=== PATIENT | male | born 1960 | race Caucasian/White ===

== ENCOUNTER 2017-05-09 04:41 | Emergency (ER) | payer SELFPAY ==
[~2017-05-09] VITALS: Ht 177.8 cm; Wt 111.0 kg
[~2017-05-09 04:41] MED LIST: LISI-363 PO; LORTA10 PO
[2017-05-09 04:43] VITALS: BP 142/94; PULSE 97; RESP 20; TEMP 98.3; O2SAT 98
--- NOTE | 2017-05-09 05:37 | PD ---
HPI Chief Complaint: Musculoskeletal Complaint Time Seen by Provider: 04:59 Travel History International Travel<30 days: No Contact w/Intl Traveler<30days: No Traveled to known affect area: No History of Present Illness HPI The patient is 56 year old male who presents to the [facility] emergency department with a history of joint pain that first began approximately 6 months ago. He reports that it began when he developed plantar fasciitis in the right foot. He reports that he believes that he was walking with an abnormal gait and then developed pain in both ankles and knees. He reports that since then he has developed pain also in his hands, wrists, elbows, and shoulders. He denies having any swelling of his joints or redness of his joints. He denies having any fevers or chills. He denies having any night sweats or weight loss. He reports that he has seen his primary care physician regarding this as well as the urgent care center on multiple occasions. The patient reports that he had a large battery of laboratory studies done and no particular abnormality was noted. Rheumatoid arthritis was ruled out. The patient denies having any physical therapy regarding this. He reports that he has not been able to work because of the pain. He reports that he is applying for disability because of this. He was started on Gabapentin tid and when it was not helping his primary care physician titrated it up. Dr. Kenney then also added Celebrex, however this has not been helping. He reports that the only thing that seemed to help with ibuprofen, however his primary care physician did not want him to take this due to his history of high blood pressure. On of systems otherwise, the patient denies having any cough, congestion, neck pain, chest pain, shortness of breath , abdominal pain, vomiting, diarrhea, urinary symptoms, or neurologic symptoms. [facility] Past Medical History Narrative Medical The patient's past medical history is significant for plantar fasciitis, hypertension. PCP: Dr. Kvng Kenney. Diabetes: No Diminished Hearing: No Hypertension: Yes (ON MEDS FOR SEVERAL YEARS) Tetanus Vaccination: < 5 Years Influenza Vaccination: Yes Past Surgical History Narrative Surgical The Patient's past surgical history is significant for 3 operations on his right shoulder. Social History Alcohol Use: Yes (1-2 martinis daily) Tobacco Use: Yes (1 cigar a week) Substance Use: No (NOT IN OVER 10 YEARS) Allergies-Medications (Allergen,Severity, Reaction): Coded Allergies: No Known Allergies (Verified Adverse Reaction, Unknown, 05/09/17) Reported Meds & Prescriptions Reported Meds & Active Scripts Active Mobic (Meloxicam) 15 Mg Tab 15 Mg PO DAILY Reported Hydrocodone/Acetaminophen 10 mg/325 mg Acetaminophen 325/10 Hydrocodone Tab 1 Tab PO Q4H PRN Lisinopril 20 mg (Lisinopril) 20 Mg Tab 20 Mg PO DAILY Narrative Medication Gabapentin, Celebrex Review of Systems Except as stated in HPI: all other systems reviewed are Neg General / Constitutional: No: Fever Eyes: No: Visual changes HENT: No: Headaches Cardiovascular: No: Chest Pain or Discomfort Respiratory: No: Shortness of Breath Gastrointestinal: No: Nausea, Vomiting, Diarrhea, Abdominal Pain Genitourinary: No: Dysuria Musculoskeletal: Positive: Arthralgias, Pain Skin: No Rash Neurologic: No: Weakness, Focal Abnormalities, Change in Mentation, Slurred Speech, Sensory Disturbance Psychiatric: No: Depression Endocrine: No: Polydipsia Hematologic/Lymphatic: No: Easy Bruising Physical Exam Narrative General: The patient is a well-developed well-nourished male in no acute distress. Head and Neck exam: Head is normocephalic atraumatic. Eyes: EOMI, pupils are equal round and reactive to light. Nose: Midline septum with pink mucous membranes Mouth: Dentition unremarkable. Moist mucus membranes. Posterior oropharynx is not erythematous. No tonsillar hypertrophy. Uvula midline. Airway patent. Neck: No palpable lymphadenopathy. No nuchal rigidity. No thyromegaly. Cardiovascular: Regular rate and rhythm without murmurs, gallops, or rubs. Lungs: Clear to auscultation bilaterally. No wheezes, rhonchi, or rales. Abdomen: Soft, without tenderness to palpation in all 4 quadrants of the abdomen. No guarding, rebound, or rigidity. Normal Bowel sounds are audible. No tenderness on palpation of McBurney's point. Extremities: No clubbing, cyanosis, or edema. 2+ pulses in all 4 extremities. The patient has no calf tenderness on palpation. The patient on examination reports shoulder, elbow, wrist, knee, and ankle pain with range of motion. The patient has no erythema or swelling noted. No effusions noted. No visible joint deformity or crepitus. Back: No spinous process tenderness to palpation. No costovertebral angle tenderness to palpation. Neurologic Exam: Grossly nonfocal. Skin Exam: No rash noted. Intact skin that is warm and dry. Data Data Last Documented VS Vital Signs Date Time Temp Pulse Resp B/P (MAP) Pulse Ox O2 Delivery O2 Flow Rate FiO2 05/09/17 06:38 05/09/17 04:43 98.3 97 20 98 Orders Orders Ketorolac Inj (Toradol Inj) (05/09/17 06:15) Ed Discharge Order (05/09/17 06:08) MDM Medical Decision Making Medical Screen Exam Complete: Yes Emergency Medical Condition: Yes Medical Record Reviewed: Yes Differential Diagnosis Osteoarthritis versus inflammatory arthritis Narrative Course During the course of the patients emergency department visit, the patients history, examination, and differential diagnosis were reviewed with the patient. The patient was placed on a court monitor with oximetry and frequent blood pressure monitoring. The patient was provided Toradol 30 mg IM 1. The patient's differential diagnosis was discussed with him. As he has had a recent workup done including blood work that was unremarkable, I suspect that the patient has osteoarthritis. The patient was instructed to discontinue his Celebrex. The patient will instead be started on Mobic. The patient was instructed to discuss with his primary care physician getting referred for physical therapy. The patient is resting comfortably and feels better, is alert and in no distress. The patient's examination findings were discussed with the patient. The history, exam, and current condition do not suggest any significant pathology to warrant further testing, continued ED treatment, admission, or surgical evaluation at this point. The vital signs have been stable. The patient does not have uncontrollable pain, intractable vomiting, or other significant symptoms. The patient's condition is stable and appropriate for discharge. The patient will pursue further outpatient evaluation with a primary care physician or other designated or consulting physician as indicated in the discharge instructions. The patient expressed understanding and was agreeable with this plan. Diagnosis Primary Impression: Arthralgia of both knees Additional Impressions: Arthralgia of both ankles Arthralgia of left upper arm Arthralgia of right upper arm Referrals: Primary Care Physician Patient Instructions: Arthritis (ED), General Instructions Additional Instructions: I recommended he follow up with her primary care physician for referral to physical therapy for exercises and stretching techniques that will help with your arthralgias. Med/Other Pt SpecificInfo: Prescription(s) given, Med Stopped (Stop Celebrex ) Scripts Meloxicam (Mobic) 15 Mg Tab 15 MG PO DAILY, #14 TAB 0 Refills Prov: Dione Sylvester MD 05/09/17 Disposition: 01 DISCHARGE HOME Condition: Stable Dione Sylvester MD May 09, 2017 05:37
[2017-05-09] MEDS ORDERED: MOBI15TA PO (06:00)
[2017-05-09] MEDS ORDERED: KETOROLAC TROMETHAMINE 60 MG/2 ML (IM) VIAL IM ONE (06:15)
== END 2017-05-09 06:40 | disposition home or self-care (01) ==
LOC: NEPE 04:41
DX: M25.561 Pain in right knee (principal); M25.562 Pain in left knee; M25.572 Pain in left ankle and joints of left foot; M25.571 Pain in right ankle and joints of right foot
CPT/HCPCS: 96372; 99284; J1885

== ENCOUNTER 2017-10-31 06:10 | Emergency (ER) | payer SELFPAY ==
[~2017-10-31] VITALS: Ht 177.8 cm; Wt 105.0 kg
[~2017-10-31 06:10] MED LIST changes: +MOBI15TA PO
[2017-10-31 06:13] VITALS: BP 121/82; PULSE 129; RESP 20; TEMP 98.6; O2SAT 96
[2017-10-31 06:24] VITALS: BP 136/105; PULSE 130; RESP 20; O2SAT 97
[2017-10-31] MEDS ORDERED: LISI-515 PO (06:26)
[2017-10-31] MEDS ORDERED: PANTOPRAZOLE SODIUM 40 MG VIAL IV PUSH ONE (06:30)
[2017-10-31] MEDS ORDERED: ONDANSETRON HCL 4 MG/2 ML VIAL IV ONE (06:30)
[2017-10-31] MEDS ORDERED: SODIUM CHLOR 0.9% 1000 ML INJ 1,000 ML IV ONE ×3 (06:30→08:30)
[2017-10-31 06:33] VITALS: O2SAT 98
--- NOTE | 2017-10-31 06:41 | PD ---
HPI Chief Complaint: Abdominal Pain Time Seen by Provider: 06:18 Travel History International Travel<30 days: No Contact w/Intl Traveler<30days: No Traveled to known affect area: No History of Present Illness HPI The patient is a 57 year old male who presents to the [facility] emergency department with a history of not feeling well for the last week. The patient reports that he has been having dry heaves, frequent hiccuping, and diarrhea. He denies having any abdominal pain. He reports that he has not had any appetite and has lost 13 pounds in the last week. He reports that he has had diarrhea approximately every hour to hour and a half. He reports that the stool is green in color. He denies having any blood in his stool or mucus in his stool. He denies any recent antibiotic use. He reports that he has been having increased acid indigestion and heartburn. He denies having any chest pain or shortness of breath. On review of systems otherwise, the patient denies having any recent fevers, cough or congestion, neck pain, urinary symptoms, or neurologic symptoms. [facility] Past Medical History Narrative Medical The patient's past medical history is significant for hypertension. Diabetes: No Diminished Hearing: No Hypertension: Yes Tetanus Vaccination: < 5 Years Influenza Vaccination: Yes Past Surgical History Narrative Surgical The patient's past surgical history is significant for 3 prior operations on his right shoulder. Social History Alcohol Use: Yes (2 martinis daily) Tobacco Use: Yes (One half pack per day) Substance Use: No (NOT IN OVER 10 YEARS) Allergies-Medications (Allergen,Severity, Reaction): Coded Allergies: No Known Allergies (Verified Adverse Reaction, Unknown, 10/31/17) Reported Meds & Prescriptions Reported Meds & Active Scripts Active Reported Lisinopril 20 Mg Tab 20 Mg PO DAILY Review of Systems Except as stated in HPI: all other systems reviewed are Neg General / Constitutional: Positive: Weight Loss, No: Fever Eyes: No: Visual changes HENT: No: Headaches Cardiovascular: No: Chest Pain or Discomfort Respiratory: No: Shortness of Breath Gastrointestinal: Positive: Nausea, Vomiting, Diarrhea, Changes in Bowel Habits , Indigestion, Loss of Appetite, No: Abdominal Pain, Hematochezia Genitourinary: No: Dysuria Musculoskeletal: No: Pain Skin: No Rash Neurologic: No: Weakness, Focal Abnormalities, Change in Mentation, Slurred Speech, Sensory Disturbance Psychiatric: No: Depression Endocrine: No: Polydipsia Hematologic/Lymphatic: No: Easy Bruising Physical Exam Narrative General: The patient is a well-developed well-nourished male in no acute distress. Head and Neck exam: Head is normocephalic atraumatic. Eyes: EOMI, pupils are equal round and reactive to light. Nose: Midline septum with pink mucous membranes Mouth: Dentition unremarkable. Moist mucus membranes. Posterior oropharynx is erythematous without tonsillar hypertrophy. No palatal petechiae. Uvula midline. Airway patent. Neck: No palpable lymphadenopathy. No nuchal rigidity. No thyromegaly. Cardiovascular: Sinus tachycardia in the 1 teens to 120 without murmurs, gallops, or rubs. No pulse deficit to the extremities on simultaneous auscultation and palpation of his radial artery. Lungs: Clear to auscultation bilaterally. No wheezes, rhonchi, or rales. Abdomen: Soft, without tenderness to palpation in all 4 quadrants of the abdomen. No guarding, rebound, or rigidity. Normal bowel sounds are audible. No tenderness on palpation of McBurney's point. Negative Dale sign peer Extremities: No clubbing, cyanosis, or edema. 2+ pulses in all 4 extremities. No calf tenderness on palpation. Back: No spinous process tenderness to palpation. No costovertebral angle tenderness to palpation. Neurologic Exam: Grossly nonfocal. Skin Exam: No rash noted. Intact skin that is warm and dry. Data Data Last Documented VS Vital Signs Date Time Temp Pulse Resp B/P (MAP) Pulse Ox O2 Delivery O2 Flow Rate FiO2 10/31/17 06:33 98 Room Air 10/31/17 06:24 130 20 10/31/17 06:13 98.6 Orders Orders Electrocardiogram (10/31/17 06:28) Complete Blood Count With Diff (10/31/17 06:28) Comprehensive Metabolic Panel (10/31/17 06:28) Prothrombin Time / Inr (Pt) (10/31/17 06:28) Act Partial Throm Time (Ptt) (10/31/17 06:28) Lipase (10/31/17 06:28) Urinalysis - C+S If Indicated (10/31/17 06:28) Magnesium (Mg) (10/31/17 06:28) Thyroid Stimulating Hormone (10/31/17 06:28) Chest, Single Ap (10/31/17 06:28) Iv Access Insert/Monitor (10/31/17 06:28) Ecg Monitoring (10/31/17:28) Oximetry (10/31/17 06:28) Drug Screen, Random Urine (10/31/17 06:28) Alcohol (Ethanol) (10/31/17 06:28) Sodium Chlor 0.9% 1000 Ml Inj (Ns 1000 M (10/31/17 06:30) Ondansetron Inj (Zofran Inj) (10/31/17 06:30) Pantoprazole Inj (Protonix Inj) (10/31/17 06:30) Creatine Kinase (Cpk) (10/31/17 06:28) Ckmb (Isoenzyme) Profile (10/31/17 06:28) Troponin I (10/31/17 06:28) Labs Laboratory Tests Test 10/31/17 06:40 White Blood Count 5.3 TH/MM3 Red Blood Count 4.92 MIL/MM3 Hemoglobin 17.0 GM/DL Hematocrit 47.0 % Mean Corpuscular Volume 95.6 FL Mean Corpuscular Hemoglobin 34.6 PG Mean Corpuscular Hemoglobin Concent 36.2 % Red Cell Distribution Width 13.8 % Platelet Count 149 TH/MM3 Mean Platelet Volume 8.6 FL Neutrophils (%) (Auto) 70.2 % Lymphocytes (%) (Auto) 20.4 % Monocytes (%) (Auto) 8.6 % Eosinophils (%) (Auto) 0.0 % Basophils (%) (Auto) 0.8 % Neutrophils # (Auto) 3.7 TH/MM3 Lymphocytes # (Auto) 1.1 TH/MM3 Monocytes # (Auto) 0.5 TH/MM3 Eosinophils # (Auto) 0.0 TH/MM3 Basophils # (Auto) 0.0 TH/MM3 CBC Comment AUTO DIFF Prothrombin Time 11.5 SEC Prothromb Time International Ratio 1.1 RATIO Activated Partial Thromboplast Time 32.9 SEC MDM Medical Decision Making Medical Screen Exam Complete: Yes Emergency Medical Condition: Yes Medical Record Reviewed: Yes Differential Diagnosis Gastroenteritis, versus viral syndrome, versus electrolyte derangements, versus dehydration, versus alcohol withdrawal Narrative Course During the course of the patient's emergency department visit, the patient's history, examination, and differential diagnosis were reviewed with the patient. The patient was placed on a youth nutritional monitor with oximetry and frequent blood pressure monitoring. The patient had IV access obtained and blood work sent for analysis. The patient was initially provided normal saline 1 L IV fluid bolus, Zofran 4 mg IV, Protonix 40 mg IV. The patient's laboratory studies were reviewed and remarkable for 10/31/17 06:40 Radiology studies were reviewed and remarkable for Last Impressions Chest X-Ray 10/31/1728 Signed Impressions: Service Date/Time: Tuesday, October 31, 2017 06:35 - CONCLUSION: No acute cardiopulmonary process. David Gan MD The patient's chemistry panel, lipase, cardiac enzymes, TSH are pending at the conclusion of my shift. The patient's case was checked out to the oncoming emergency physician to disposition the patient based on the conclusion of his workup. Diagnosis Primary Impression: Diarrhea Qualified Codes: R19.7 - Diarrhea, unspecified Dione Sylvester MD October 31, 2017 06:41
[2017-10-31 06:46] LABS: AUTOMATED NEUTROPHIL # 3.7 TH/MM3 (1.8-7.7); BASOPHIL % 0.8 % (0.0-2.0); LYMPH % 20.4 % (9.0-44.0); LYMPHOCYTE # 1.1 TH/MM3 (1.0-4.8); MEAN CELL VOLUME 95.6 FL (80.0-100.0); MEAN CORPUSCULAR HEMOGLOBIN 34.6 PG (27.0-34.0); MEAN PLATELET VOLUME 8.6 FL (7.0-11.0); MONO % 8.6 % (0.0-8.0); MONOCYTE # 0.5 TH/MM3 (0-0.9); NEUT % 70.2 % (16.0-70.0); PLATELET COUNT 149 TH/MM3 (150-450); RED BLOOD COUNT 4.92 MIL/MM3 (4.50-5.90); RED CELL DISTRIBUTION WIDTH 13.8 % (11.6-17.2); WHITE BLOOD COUNT 5.3 TH/MM3 (4.0-11.0)
[2017-10-31 06:52] LABS: INTERNATIONAL NORMALIZED RATIO 1.1 RATIO; PROTHROMBIN TIME - PATIENT 11.5 SEC (9.8-11.6)
--- NOTE | 2017-10-31 06:54 | RADRPT ---
EXAM DATE/TIME: 10/31/2017 06:35 [place] COMPARISON: No previous studies available for comparison. INDICATIONS : Palpitations,short of breath. MEDICAL HISTORY : None. SURGICAL HISTORY : None. ENCOUNTER: Initial ACUITY: 1 day PAIN SCORE: 0/10 LOCATION: Bilateral chest FINDINGS: A single view of the chest demonstrates the lungs to be symmetrically aerated without evidence of mas s, infiltrate or effusion. The cardiomediastinal contours are unremarkable. Osseous structures are intact with some degenerative spurring of the dorsal spine. CONCLUSION: No acute cardiopulmonary process. David Gan MD on October 31, 2017 at 6:52 Board Certified Radiologist. This report was verified electronically.
[2017-10-31 07:00] LABS: MEAN CORPUSCULAR HGB CONC 36.2 % (32.0-36.0)
[2017-10-31 07:17] LABS: ALBUMIN 3.1 GM/DL (3.4-5.0); ALKALINE PHOSPHATASE 64 U/L (45-117); ALT (GPT) 214 U/L (12-78); AST (GOT) 420 U/L (15-37); BICARBONATE 19.8 MEQ/L (21.0-32.0); BLOOD UREA NITROGEN 15 MG/DL (7-18); CALCIUM 7.9 MG/DL (8.5-10.1); CHLORIDE 93 MEQ/L (98-107); CREATININE 1.36 MG/DL (0.60-1.30); GLOMERULAR FILTRATION RATE 54 ML/MIN (>89); GLUCOSE,RANDOM 95 MG/DL (74-106); MAGNESIUM 1.5 MG/DL (1.5-2.5); SODIUM (NA) 128 MEQ/L (136-145); TOTAL BILIRUBIN ADULT 0.6 MG/DL (0.2-1.0); TROPONIN I 0.04 NG/ML (0.02-0.05)
[2017-10-31] MEDS ORDERED: diphenhydrAMINE HCL 50 MG/ML VIAL IV PUSH ONE (07:30)
[2017-10-31] MEDS ORDERED: PROCHLORPERAZINE INJ 10 MG/2 ML VIAL IV PUSH ONE (07:30)
[2017-10-31] MEDS ORDERED: LORazepam 2 MG/ML VIAL IV PUSH ONE (07:30)
--- NOTE | 2017-10-31 08:24 | PD ---
Physical Exam Date Seen by Provider: October 31, 2017 Narrative And at [address] Sylvester. This patient presented with GI complaints. Specifically, nausea, dry heaving, hiccups and diarrhea. Onset of symptoms was one week prior to presentation. Severity was diarrhea every to 1.5 hours. The quality of the diarrhea was green. Data Data Last Documented VS Vital Signs Date Time Temp Pulse Resp B/P (MAP) Pulse Ox O2 Delivery O2 Flow Rate FiO2 10/31/17 06:33 98 Room Air 10/31/17 06:24 130 20 10/31/17 06:13 98.6 Orders Orders Electrocardiogram (10/31/17:28) Complete Blood Count With Diff (10/31/17:) Comprehensive Metabolic Panel (10/31/17) Prothrombin Time / Inr (Pt) (10/31/17) Act Partial Throm Time (Ptt) (10/31/17:28) Lipase (10/31/17:) Urinalysis - C+S If Indicated (10/31/1728) Magnesium (Mg) (10/31/17:28) Thyroid Stimulating Hormone (10/31/17:28) Chest, Single Ap (10/31/17:28) Iv Access Insert/Monitor (10/31/17:28) Ecg Monitoring (10/31/17:28) Oximetry (10/31/17:28) Drug Screen, Random Urine (10/31/17:28) Alcohol (Ethanol) (10/31/17 06:28) Sodium Chlor 0.9% 1000 Ml Inj (Ns 1000 M (10/31/17 06:30) Ondansetron Inj (Zofran Inj) (10/31/17 06:30) Pantoprazole Inj (Protonix Inj) (10/31/17 06:30) Creatine Kinase (Cpk) (10/31/17 06:28) Ckmb (Isoenzyme) Profile (10/31/17:28) Troponin I (10/31/17 06:28) CKMB (10/31/17 06:40) CKMB% (10/31/17 06:40) Lorazepam Inj (Ativan Inj) (10/31/17 07:30) Sodium Chlor 0.9% 1000 Ml Inj (Ns 1000 M (10/31/17 07:30) Diphenhydramine Inj (Benadryl Inj) (10/31/17 07:30) Prochlorperazine Inj (Compazine Inj) (10/31/17 07:30) Cath For Specimen (10/31/17 07:22) Sodium Chlor 0.9% 1000 Ml Inj (Ns 1000 M (10/31/17 08:30) Labs Laboratory Tests Test 10/31/17 06:40 10/31/17 09:27 White Blood Count 5.3 TH/MM3 Red Blood Count 4.92 MIL/MM3 Hemoglobin 17.0 GM/DL Hematocrit 47.0 % Mean Corpuscular Volume 95.6 FL Mean Corpuscular Hemoglobin 34.6 PG Mean Corpuscular Hemoglobin Concent 36.2 % Red Cell Distribution Width 13.8 % Platelet Count 149 TH/MM3 Mean Platelet Volume 8.6 FL Neutrophils (%) (Auto) 70.2 % Lymphocytes (%) (Auto) 20.4 % Monocytes (%) (Auto) 8.6 % Eosinophils (%) (Auto) 0.0 % Basophils (%) (Auto) 0.8 % Neutrophils # (Auto) 3.7 TH/MM3 Lymphocytes # (Auto) 1.1 TH/MM3 Monocytes # (Auto) 0.5 TH/MM3 Eosinophils # (Auto) 0.0 TH/MM3 Basophils # (Auto) 0.0 TH/MM3 CBC Comment AUTO DIFF Differential Comment AUTO DIFF CONFIRMED Prothrombin Time 11.5 SEC Prothromb Time International Ratio 1.1 RATIO Activated Partial Thromboplast Time 32.9 SEC Blood Urea Nitrogen 15 MG/DL Creatinine 1.36 MG/DL Random Glucose 95 MG/DL Total Protein 8.0 GM/DL Albumin 3.1 GM/DL Calcium Level 7.9 MG/DL Magnesium Level 1.5 MG/DL Alkaline Phosphatase 64 U/L Aspartate Amino Transf (AST/SGOT) 420 U/L Alanine Aminotransferase (ALT/SGPT) 214 U/L Total Bilirubin 0.6 MG/DL Sodium Level 128 MEQ/L Potassium Level 4.1 MEQ/L Chloride Level 93 MEQ/L Carbon Dioxide Level 19.8 MEQ/L Anion Gap 15 MEQ/L Estimat Glomerular Filtration Rate 54 ML/MIN Total Creatine Kinase 463 U/L Creatine Kinase MB 2.8 NG/ML Creatine Kinase MB % 0.6 % Troponin I 0.04 NG/ML Lipase 284 U/L Thyroid Stimulating Hormone 3rd Gen 0.427 uIU/ML Ethyl Alcohol Level 156 MG/DL Urine Color YELLOW Urine Turbidity CLEAR Urine pH 6.0 Urine Specific [place] 1.016 Urine Protein 30 mg/dL Urine Glucose (UA) NEG mg/dL Urine Ketones 10 mg/dL Urine Occult Blood SMALL Urine Nitrite NEG Urine Bilirubin NEG Urine Urobilinogen LESS THAN 2.0 MG/DL Urine Leukocyte Esterase NEG Urine RBC 1 /hpf Urine WBC 2 /hpf Urine Squamous Epithelial Cells 1 /hpf Urine Hyaline Casts 11 /lpf Urine Mucus FEW /lpf Microscopic Urinalysis Comment CULT NOT INDICATED Urine Opiates Screen NEG Urine Barbiturates Screen NEG Urine Amphetamines Screen NEG Urine Benzodiazepines Screen NEG Urine Cocaine Screen POS Urine Cannabinoids Screen NEG MDM Supervised Visit with VENKAT: No Narrative Course Vital Signs Date Time Temp Pulse Resp B/P (MAP) Pulse Ox O2 Delivery O2 Flow Rate FiO2 10/31/17 06:33 98 Room Air 10/31/17 06:24 130 20 136/105 (115) 97 Room Air 10/31/17 06:13 98.6 129 20 121/82 (95) 96 CBC & BMP Diagram 10/31/17 06:40 Total Protein 8.0, Albumin 3.1 L, Calcium Level 7.9 L, Magnesium Level 1.5, Alkaline Phosphatase 64, Aspartate Amino Transf (AST/SGOT) 420 H, Alanine Aminotransferase (ALT/SGPT) 214 H, Total Bilirubin 0.6 Alcohol level is 156 The patient is being treated here with IV fluids. He has had Zofran and Ativan prior to my assuming his care. He continued to have hiccups and dry heaves. He was then given Compazine and Benadryl. He now appears to be resting comfortably. His heart rate has come down. UA is negative This patient has been here now for almost 5 hours and has had only one small diarrheal stool. He is stable for discharge to home. Diagnosis Primary Impression: Diarrhea Qualified Codes: R19.7 - Diarrhea, unspecified Additional Impressions: Dehydration Hyponatremia Alcohol intoxication Qualified Codes: F10.920 - Alcohol use, unspecified with intoxication, uncomplicated Transaminitis Patient Instructions: Abuse of Alcohol (DC), Acute Diarrhea (ED), General Instructions Disposition: DISCHARGE HOME Condition: Stable Lachelle Cid MD October 31, 2017 08:24
--- NOTE | 2017-10-31 08:48 | EKG ---
Date Performed: 10/31/2017 Time Performed: 06:23:17 PTAGE: 57 years EKG: SINUS TACHYCARDIA NONSPECIFIC T-WAVE ABNORMALITY ABNORMAL RHYTHM ECG NO PREVIOUS TRACING DOCTOR: Yoel Sylvester Interpretating Date/Time 10/31/2017 08:46:03
[2017-10-31 09:00] VITALS: BP 139/66; PULSE 116; RESP 16; O2SAT 100
[2017-10-31 09:49] LABS: BILIRUBIN, URINE NEG (NEG); BLOOD, URINE SMALL (NEG); GLUCOSE,URINE NEG (NEG); HYALINE CAST, URINE 11 /lpf (RARE); KETONE, URINE 10 mg/dL (NEG); MUCUS URINE FEW /lpf (OCC); NITRITE,URINE NEG (NEG); SQUAMOUS EPITHELIAL CELL URINE 1 /hpf (0-5); URINE COLOR YELLOW (YELLW/STRAW); URINE LEUKOCYTE ESTERASE NEG (NEG)
[2017-10-31 11:00] VITALS: BP 138/65; PULSE 110; RESP 20; O2SAT 98
== END 2017-10-31 11:55 | disposition home or self-care (01) ==
LOC: NEPE 06:10
DX: R19.7 Diarrhea, unspecified (principal); E86.0 Dehydration; E87.1 Hypo-osmolality and hyponatremia; R74.0 Nonspecific elevation of levels of transaminase and lactic acid dehydrogenase [LDH]; I10 Essential (primary) hypertension; F17.200 Nicotine dependence, unspecified, uncomplicated; R00.0 Tachycardia, unspecified; F10.129 Alcohol abuse with intoxication, unspecified; Y90.6 Blood alcohol level of 120-199 mg/100 ml; Z79.899 Other long term (current) drug therapy
CPT/HCPCS: 71045; 80053; 80307; 81001; 82550; 82552; 83690; 83735; 84443; 84484; 85025; 85610; 85730; 93005; 96361; 96374; 96375; 99285; C9113; J0780; J1200; J2060; J2405; J7030

== ENCOUNTER 2017-11-01 21:06 | Inpatient (IN) | payer SELFPAY ==
[~2017-11-01 21:06] MED LIST changes: -LISI-363 PO; +LISI-515 PO; -LORTA10 PO; -MOBI15TA PO
[2017-11-01 21:11] VITALS: BP 135/86; PULSE 139; RESP 18; TEMP 100.3; O2SAT 97
[2017-11-01] MEDS ORDERED: SODIUM CHLOR 0.9% 1000 ML INJ 1,000 ML IV SCH (21:27)
[2017-11-01 21:30] VITALS: RESP 22
[2017-11-01] MEDS ORDERED: ONDANSETRON HCL 4 MG/2 ML VIAL IVP ONE (21:30)
[2017-11-01] MEDS ORDERED: SODIUM CHLORIDE 0.9% FLUSH 10 ML FLUSH IV FLUSH PRN (21:30)
[2017-11-01] MEDS ORDERED: LORazepam 2 MG/ML VIAL IV PUSH ONE (21:30)
[2017-11-01 21:54] LABS: AUTOMATED NEUTROPHIL # 1.8 TH/MM3 (1.8-7.7); BASOPHIL % 0.7 % (0.0-2.0); HEMATOCRIT 47.4 % (39.0-51.0); HEMOGLOBIN 16.9 GM/DL (13.0-17.0); LYMPH % 26.7 % (9.0-44.0); LYMPHOCYTE # 0.7 TH/MM3 (1.0-4.8); MEAN CELL VOLUME 95.9 FL (80.0-100.0); MEAN CORPUSCULAR HEMOGLOBIN 34.2 PG (27.0-34.0); MEAN CORPUSCULAR HGB CONC 35.7 % (32.0-36.0); MONO % 6.9 % (0.0-8.0); MONOCYTE # 0.2 TH/MM3 (0-0.9); NEUT % 65.7 % (16.0-70.0); PLATELET COUNT 92 TH/MM3 (150-450); RED BLOOD COUNT 4.95 MIL/MM3 (4.50-5.90); RED CELL DISTRIBUTION WIDTH 13.9 % (11.6-17.2); WHITE BLOOD COUNT 2.8 TH/MM3 (4.0-11.0)
--- NOTE | 2017-11-01 22:04 | PD ---
HPI Chief Complaint: GI Complaint Time Seen by Provider: 21:26 Travel History International Travel<30 days: No Contact w/Intl Traveler<30days: No Traveled to known affect area: No History of Present Illness HPI Patient comes emergency department complaining of inability to swallow. Patient is he has been having issues for the past 3 or 4 months with get worse over the past 4 days. Patient was seen here yesterday for the same. Patient was medically cleared at that time and discharged home. Patient states that anytime he tries to eat or drink anything he is unable to swallow and just has to spit it right back out. Patient states he feels like he has something stuck in his throat that is keeping him from being able swallow. Patient is he has not had any alcohol in several days secondary to not being able swallow. Denies any chest pain, shortness of breath, fevers, abdominal pain, or headache. Patient reports associated clear diarrhea. PFSH Past Medical History Diabetes: No Diminished Hearing: No Hypertension: Yes Immunizations Current: Yes Tetanus Vaccination: < 5 Years Influenza Vaccination: Yes Social History Alcohol Use: Yes (2 martinis daily) Tobacco Use: Yes (One half pack per day) Substance Use: No (NOT IN OVER 10 YEARS) Allergies-Medications (Allergen,Severity, Reaction): Coded Allergies: No Known Allergies (Verified Adverse Reaction, Unknown, 11/01/17) Reported Meds & Prescriptions Reported Meds & Active Scripts Active Reported Lisinopril 20 Mg Tab 20 Mg PO DAILY Review of Systems Except as stated in HPI: all other systems reviewed are Neg Physical Exam Narrative GENERAL: Well-developed, overly nourished, in no acute distress, and non-ill appearing. SKIN: Focused skin assessment warm and dry. HEAD: Atraumatic. Normocephalic. EYES: Pupils equal and round. EOMI. No scleral icterus. No injection or drainage. ENT: No nasal bleeding or discharge. Mucous membranes pink and moist. Posterior pharynx mild erythematous scant exudate noted. Questionable thrush. NECK: Trachea midline. No cervical lymphadenopathy. Supple. No nuclear rigidity. CARDIOVASCULAR: Regular rate and rhythm. No murmur appreciated. RESPIRATORY: No accessory muscle use. No respiratory distress. Clear to auscultation. Breath sounds equal bilaterally. GASTROINTESTINAL: Abdomen soft, non-tender, nondistended, and no guarding. Hepatic and splenic margins not palpable. Normal bowel sounds x4. No pulsatile mass. MUSCULOSKELETAL: No obvious deformities. No clubbing. No cyanosis. No edema. Full range of motion. NEUROLOGICAL: Awake and alert. No obvious cranial nerve deficits. Motor grossly within normal limits. Normal speech. PSYCHIATRIC: Appropriate mood and affect; insight and judgment normal. Data Data Last Documented VS Vital Signs Date Time Temp Pulse Resp B/P (MAP) Pulse Ox O2 Delivery O2 Flow Rate FiO2 11/01/17 22:07 99.4 119 24 143/90 (107) 97 Nasal Cannula 2.00 Orders Orders Complete Blood Count With Diff (11/01/17 21:27) Comprehensive Metabolic Panel (11/01/17 21:27) Lipase (11/01/17 21:27) Prothrombin Time / Inr (Pt) (11/01/17:) Act Partial Throm Time (Ptt) (11/01/17 21:27) Iv Access Insert/Monitor (11/01/17 21:27) Ecg Monitoring (11/01/17 21:27) Oximetry (11/01/17 21:27) Ondansetron Inj (Zofran Inj) (11/01/17 21:30) Sodium Chlor 0.9% 1000 Ml Inj (Ns 1000 M (11/01/17 21:27) Sodium Chloride 0.9% Flush (Ns Flush) (11/01/17 21:30) Electrocardiogram (11/01/17 21:27) Lorazepam Inj (Ativan Inj) (11/01/17 21:30) Alcohol (Ethanol) (11/01/17 21:32) Soft Tissue Neck (11/01/17 ) Group A Rapid Strep Screen (11/01/17 21:32) Electrocardiogram (11/01/17 21:35) Ckmb (Isoenzyme) Profile (11/01/17 21:35) Magnesium (Mg) (11/01/17 21:35) Troponin I (11/01/17 21:35) Bilateral Bp Monitoring (11/01/17 21:35) Oxygen Administration (11/01/17 21:35) Chest, Pa & Lat (11/01/17 21:35) Ketorolac Inj (Toradol Inj) (11/01/17 22:15) Influenzae A/B Antigen (11/01/17 22:16) Strep Culture (Group A) (11/01/17 22:10) Ns (Bolus) Inj (11/01/17 22:45) Electrocardiogram (11/01/17 ) Ct Soft Tiss Neck W Iv Cont (11/01/17 ) Ct Abd/Pel W Iv Contrast(Rout) (11/01/17 ) Labs Laboratory Tests Test 11/01/17 21:30 White Blood Count 2.8 TH/MM3 Red Blood Count 4.95 MIL/MM3 Hemoglobin 16.9 GM/DL Hematocrit 47.4 % Mean Corpuscular Volume 95.9 FL Mean Corpuscular Hemoglobin 34.2 PG Mean Corpuscular Hemoglobin Concent 35.7 % Red Cell Distribution Width 13.9 % Platelet Count 92 TH/MM3 Mean Platelet Volume 9.0 FL Neutrophils (%) (Auto) 65.7 % Lymphocytes (%) (Auto) 26.7 % Monocytes (%) (Auto) 6.9 % Eosinophils (%) (Auto) 0.0 % Basophils (%) (Auto) 0.7 % Neutrophils # (Auto) 1.8 TH/MM3 Lymphocytes # (Auto) 0.7 TH/MM3 Monocytes # (Auto) 0.2 TH/MM3 Eosinophils # (Auto) 0.0 TH/MM3 Basophils # (Auto) 0.0 TH/MM3 CBC Comment AUTO DIFF Differential Comment AUTO DIFF CONFIRMED Platelet Estimate LOW Platelet Morphology Comment NORMAL Prothrombin Time 12.0 SEC Prothromb Time International Ratio 1.2 RATIO Activated Partial Thromboplast Time 34.0 SEC Blood Urea Nitrogen 14 MG/DL Creatinine 1.42 MG/DL Random Glucose 100 MG/DL Total Protein 7.7 GM/DL Albumin 3.0 GM/DL Calcium Level 7.6 MG/DL Alkaline Phosphatase 59 U/L Aspartate Amino Transf (AST/SGOT) 882 U/L Alanine Aminotransferase (ALT/SGPT) 399 U/L Total Bilirubin 0.8 MG/DL Sodium Level 131 MEQ/L Potassium Level 3.5 MEQ/L Chloride Level 96 MEQ/L Carbon Dioxide Level 19.6 MEQ/L Anion Gap 15 MEQ/L Estimat Glomerular Filtration Rate 51 ML/MIN Lipase 609 U/L MDM Medical Decision Making Medical Screen Exam Complete: Yes Emergency Medical Condition: Yes Medical Record Reviewed: Yes Interpretation(s) Initial EKG reviewed by Dr. Mistry shows sinus tachycardia with ventricular rate 137. No STEMI. Differential Diagnosis Strep pharyngitis, viral pharyngitis, alcohol withdrawal, atypical chest pain, pancreatitis, metabolic disturbance Narrative Course Patient was seen and examined. Initial laboratory radiological studies were ordered. Patient is an IV fluid, IV Ativan, and IV Zofran. After reviewing patient's labs, CTs were ordered. Patient was signed out to Dr. Mistry at the end of my shift pending radiological results. Please see his documentation for final diagnosis and disposition. Wolfgang Hernandez November 01, 2017 22:04
[2017-11-01 22:07] VITALS: BP 143/90; PULSE 119; RESP 24; TEMP 99.4; O2SAT 97
[2017-11-01 22:13] LABS: INTERNATIONAL NORMALIZED RATIO 1.2 RATIO
[2017-11-01] MEDS ORDERED: KETOROLAC TROMETHAMINE 30 MG/ML (IVP) VIAL IV PUSH ONE (22:15)
[2017-11-01 22:25] LABS: ALKALINE PHOSPHATASE 59 U/L (45-117); ALT (GPT) 399 U/L (12-78); AST (GOT) 882 U/L (15-37); BICARBONATE 19.6 MEQ/L (21.0-32.0); BLOOD UREA NITROGEN 14 MG/DL (7-18); CALCIUM 7.6 MG/DL (8.5-10.1); CHLORIDE 96 MEQ/L (98-107); CREATININE 1.42 MG/DL (0.60-1.30); GLOMERULAR FILTRATION RATE 51 ML/MIN (>89); GLUCOSE,RANDOM 100 MG/DL (74-106); SODIUM (NA) 131 MEQ/L (136-145); TOTAL BILIRUBIN ADULT 0.8 MG/DL (0.2-1.0); TOTAL PROTEIN 7.7 GM/DL (6.4-8.2)
[2017-11-01] MEDS ORDERED: SODIUM CHLOR 0.9% 1000 ML INJ 1,000 ML IV ONE (22:45)
--- NOTE | 2017-11-01 22:50 | RADRPT ---
EXAM DATE/TIME: 11/01/2017 21:51 [facility] COMPARISON: No previous studies available for comparison. INDICATIONS : Patient states he feels like he has something stuck in the top of his mouth. MEDICAL HISTORY : None. SURGICAL HISTORY : None. ENCOUNTER: Initial ACUITY: 1 day PAIN SCORE: 0/10 LOCATION: Esophagus FINDINGS: Two view examination of the soft tissues of the neck demonstrates the hypopharyngeal airway to have a grossly normal configuration. The trachea is midline. No radiopaque foreign bodies are seen. CONCLUSION: 1. No acute findings. Bobby Chance MD on November 01, 2017 at 22:48 Board Certified Radiologist. This report was verified electronically.
--- NOTE | 2017-11-01 22:51 | RADRPT ---
EXAM DATE/TIME: 11/01/2017 21:53 [facility] COMPARISON: No previous studies available for comparison. INDICATIONS : Chest pain. MEDICAL HISTORY : None. SURGICAL HISTORY : None. ENCOUNTER: Initial ACUITY: 1 day PAIN SCORE: 2/10 LOCATION: Bilateral chest FINDINGS: PA and lateral views of the chest demonstrate the lungs to be symmetrically aerated without evidence of mass, infiltrate or effusion. The cardiomediastinal contours are unremarkable. Osseous structure s are intact. CONCLUSION: No acute disease. Bobby Chance MD on November 01, 2017 at 22:48 Board Certified Radiologist. This report was verified electronically.
[2017-11-01] MEDS ORDERED: IOHEXOL 350 MG/ML 10 ML VIAL (for RAD DIAG) IVCONTRAST ONE (23:18)
[2017-11-01 23:33] LABS: TROPONIN I 0.11 NG/ML (0.02-0.05)
[2017-11-01 23:41] LABS: MAGNESIUM 1.5 MG/DL (1.5-2.5)
--- NOTE | 2017-11-01 23:43 | RADRPT ---
EXAM DATE/TIME: 11/01/2017 23:06 [facility] COMPARISON: No previous studies available for comparison. INDICATIONS : Abdomen pain. Elevated lipase. IV CONTRAST: 80 cc Omnipaque 350 (iohexol) IV ORAL CONTRAST: No oral contrast ingested. RADIATION DOSE: 10.32 CTDIvol (mGy) MEDICAL HISTORY : None SURGICAL HISTORY : None. ENCOUNTER: Initial ACUITY: 1 day PAIN SCALE: 6/10 LOCATION: Bilateral upper quadrant TECHNIQUE: Volumetric scanning of the abdomen and pelvis was performed. Using automated exposure control and ad justment of the mA and/or kV according to patient size, radiation dose was kept as low as reasonably achievable to obtain optimal diagnostic quality images. DICOM format image data is available electro nically for review and comparison. FINDINGS: LOWER LUNGS: Right base atelectasis. LIVER: Mildly decreased hepatic attenuation which may be steatosis. No definite focal mass or biliary ductal dilatation. SPLEEN: Normal size without lesion. PANCREAS: Within normal limits. KIDNEYS: Cyst in the anterior upper pole cortex of the left kidney. 2.3 cm solid mass arising from the lateral lower pole cortex of the right kidney. No evidence of stone or hydronephrosis. ADRENAL GLANDS: Within normal limits. VASCULAR: There is no aortic aneurysm. BOWEL/MESENTERY: Distal colonic diverticula. No abnormal dilatation, wall thickening or focal inflammatory changes. ABDOMINAL WALL: Within normal limits. RETROPERITONEUM: There is no lymphadenopathy. BLADDER: No wall thickening or mass. REPRODUCTIVE: Within normal limits. INGUINAL: There is no lymphadenopathy or hernia. MUSCULOSKELETAL: Within normal limits for patient age. CONCLUSION: 2.3 cm solid mass arising from the lateral lower pole cortex of the right kidney. Outpatient biopsy w ith concomitant cryoablation treatment would be recommended for this. No acute CT findings. Jalen Coronado MD on November 01, 2017 at 23:34 Board Certified Radiologist. This report was verified electronically.
--- NOTE | 2017-11-01 23:47 | RADRPT ---
EXAM DATE/TIME: 11/01/2017 23:09 [facility] COMPARISON: No previous studies available for comparison. INDICATIONS : Dysphagia. IV CONTRAST: 30 cc Omnipaque 350 (iohexol) IV RADIATION DOSE: 22.29 CTDIvol (mGy) MEDICAL HISTORY : None SURGICAL HISTORY : None. ENCOUNTER: Initial ACUITY: 1 day PAIN SCALE: 8/10 LOCATION: neck TECHNIQUE: Volumetric scanning of the neck was performed. Using automated exposure control and adjustment of th e mA and/or kV according to patient size, radiation dose was kept as low as reasonably achievable to obtain optimal diagnostic quality images. DICOM format image data is available electronically for r eview and comparison. FINDINGS: NASOPHARYNX: The nasopharyngeal airway has a normal configuration. No mucosal thickening or mass is seen. OROPHARYNX: The intrinsic muscles of the tongue are symmetric. The tonsillar pillars are intact. The prevertebr al soft tissues are not thickened. LARYNX: The supraglottic, glottic, and infraglottic structures are intact. PARAPHARYNGEAL: The parapharyngeal space is intact. SALIVARY GLANDS: The parotid and submandibular glands are intact. LYMPH NODES: No enlarged or necrotic-appearing nodes. THYROID: Homogeneous enhancement without evidence of nodule. BONES: Unremarkable. CONCLUSION: Negative Jalen Coronado MD on November 01, 2017 at 23:41 Board Certified Radiologist. This report was verified electronically.
[2017-11-01 23:48] VITALS: BP 124/78; PULSE 97; RESP 18; O2SAT 96
[2017-11-02] MEDS ORDERED: ASPIRIN 81 MG CHEW TAB CHEW ONE (00:30)
[2017-11-02 02:02] VITALS: BP 117/76; PULSE 91; RESP 16; O2SAT 98
[2017-11-02] MEDS ORDERED: THIAMINE INJ 100 MG in SODIUM CHLORIDE 0.9% INJ 100 ML IV SCH (02:30)
[2017-11-02] MEDS ORDERED: LORazepam 2 MG TAB PO PRN (02:30)
[2017-11-02] MEDS ORDERED: NALOXONE HCL 0.4 MG/ML AMP IV PUSH PRN (02:30)
[2017-11-02] MEDS ORDERED: MULTIVITAMIN INJ 10 ML, FOLIC ACID INJ 1 MG in SODIUM CHLORID 0.9% 500 ML INJ 500 ML IV SCH (02:30)
[2017-11-02] MEDS ORDERED: LACTULOSE SYRUP 20 GM/30 ML CUP PO PRN (02:30)
[2017-11-02] MEDS ORDERED: FLUMAZENIL 0.5 MG/5 ML VIAL IV PUSH PRN (02:30)
[2017-11-02] MEDS ORDERED: MAGNESIUM HYDROXIDE SUSP 30 ML CUP PO PRN (02:30)
[2017-11-02] MEDS ORDERED: SENNOSIDES 8.6 MG TAB PO PRN (02:30)
[2017-11-02] MEDS ORDERED: LORazepam 1 MG TAB PO PRN (02:30)
[2017-11-02] MEDS ORDERED: SODIUM CHLORIDE 0.9% FLUSH 10 ML FLUSH IV FLUSH PRN (02:30)
[2017-11-02] MEDS ORDERED: BISACODYL 10 MG SUPP RECTAL PRN (02:30)
[2017-11-02] MEDS ORDERED: HALOPERIDOL LACTATE 5 MG/ML AMP IM PRN (02:30)
[2017-11-02] MEDS ORDERED: ACETAMINOPHEN 325 MG TAB PO PRN (02:30)
[2017-11-02] MEDS ORDERED: ONDANSETRON HCL 4 MG/2 ML VIAL IVP PRN (02:30)
[2017-11-02] MEDS ORDERED: LORazepam 2 MG/ML VIAL IV PUSH PRN ×4 (02:30)
--- NOTE | 2017-11-02 02:38 | HHI.HP ---
HPI Service [facility] Primary Care Physician Kvng Kenney D.O. Admission Diagnosis elevated trop and etoh induced liver enzymes and lipase Diagnoses: Travel History International Travel<30 Days: No Contact w/Intl Traveler <30 Da: No Traveled to Known Affected Are: No History of Present Illness 57-year-old male with a past medical history significant for hypertension and alcohol abuse presents to the emergency department for the evaluation of dry heaves and nausea. The patient also reports dysphagia that has been occurring over the past week. He states he cannot swallow any food without it getting "stuck in his throat and coming back up." He states he can swallow liquids without difficulty. He reports he has not had any food to eat in the past 7 days. The patient is somewhat tremulous during her interview. He reports that he recently cut down from drinking 6-7 drinks daily to his drinking 2-3 drinks daily. He denies any chest pain or shortness of breath. No abdominal pain. Denies emesis but reports positive regurgitation. No diarrhea. No lateralizing signs/symptoms. No fevers/chills. Review of Systems Except as stated in HPI: all other systems reviewed are Neg Past Family Social History Past Medical History Hypertension Alcohol abuse Past Surgical History Right shoulder Reported Medications Reported Meds & Active Scripts Active Reported Lisinopril 20 Mg Tab 20 Mg PO DAILY Allergies: Coded Allergies: No Known Allergies (Verified Adverse Reaction, Unknown, 11/01/17) Family History Negative for CAD/DM Social History Reports drinking now 2-3 martinis daily, this is a decrease from 6-7 daily. Denies tobacco and illicit drugs. Physical Exam Vital Signs Vital Signs Date Time Temp Pulse Resp B/P (MAP) Pulse Ox O2 Delivery O2 Flow Rate FiO2 11/02/17 02:02 91 16 117/76 (90) 98 Nasal Cannula 2.00 11/01/17 23:48 97 18 124/78 (93) 96 Nasal Cannula 2.00 11/01/17 22:55 16 11/01/17 22:07 99.4 119 24 143/90 (107) 97 Nasal Cannula 2.00 11/01/17 21:41 98 Room Air 11/01/17 21:30 22 11/01/17 21:11 100.3 139 18 135/86 (102) 97 Physical Exam GENERAL: Tremulous, male lying in bed sleeping SKIN: No rashes, ecchymoses or lesions. Cool and dry. HEAD: Atraumatic. Normocephalic. No temporal or scalp tenderness. EYES: Pupils equal round and reactive. Extraocular motions intact. No scleral icterus. No injection or drainage. ENT: Nose without bleeding, purulent drainage or septal hematoma. Throat without erythema, tonsillar hypertrophy or exudate. Uvula midline. Airway patent. NECK: Trachea midline. No JVD or lymphadenopathy. Supple, nontender, no meningeal signs. CARDIOVASCULAR: Regular rate and rhythm without murmurs, gallops, or rubs. RESPIRATORY: Clear to auscultation. Breath sounds equal bilaterally. No wheezes , rales, or rhonchi. GASTROINTESTINAL: Abdomen soft, non-tender, nondistended. No hepato-splenomegaly , or palpable masses. No guarding. MUSCULOSKELETAL: Extremities without clubbing, cyanosis, or edema. No joint tenderness, effusion, or edema noted. No calf tenderness. NEUROLOGICAL: Awake and alert. Cranial nerves II through XII intact. Motor and sensory grossly within normal limits. Normal speech. Laboratory Laboratory Tests Test 11/01/17 21:30 White Blood Count 2.8 Red Blood Count 4.95 Hemoglobin 16.9 Hematocrit 47.4 Mean Corpuscular Volume 95.9 Mean Corpuscular Hemoglobin 34.2 Mean Corpuscular Hemoglobin Concent 35.7 Red Cell Distribution Width 13.9 Platelet Count 92 Mean Platelet Volume 9.0 Neutrophils (%) (Auto) 65.7 Lymphocytes (%) (Auto) 26.7 Monocytes (%) (Auto) 6.9 Eosinophils (%) (Auto) 0.0 Basophils (%) (Auto) 0.7 Neutrophils # (Auto) 1.8 Lymphocytes # (Auto) 0.7 Monocytes # (Auto) 0.2 Eosinophils # (Auto) 0.0 Basophils # (Auto) 0.0 CBC Comment AUTO DIFF Differential Comment AUTO DIFF CONFIRMED Platelet Estimate LOW Platelet Morphology Comment NORMAL Prothrombin Time 12.0 Prothromb Time International Ratio 1.2 Activated Partial Thromboplast Time 34.0 Blood Urea Nitrogen 14 Creatinine 1.42 Random Glucose 100 Total Protein 7.7 Albumin 3.0 Calcium Level 7.6 Alkaline Phosphatase 59 Aspartate Amino Transf (AST/SGOT) 882 Alanine Aminotransferase (ALT/SGPT) 399 Total Bilirubin 0.8 Sodium Level 131 Potassium Level 3.5 Chloride Level 96 Carbon Dioxide Level 19.6 Anion Gap 15 Estimat Glomerular Filtration Rate 51 Magnesium Level 1.5 Total Creatine Kinase 1087 Creatine Kinase MB 2.8 Creatine Kinase MB % 0.3 Troponin I 0.11 Lipase 609 Ethyl Alcohol Level LESS THAN 3 Date/Time Source Procedure Growth Status 11/01/17 22:24 Nasal Aspirate Influenza Types A,B Antigen (TALYA) - Final NEGATIVE FOR FLU A AND B ANTIGEN.... Complete Result Diagram: 11/01/17212911/01/172129 Caprini VTE Risk Assessment Caprini VTE Risk Assessment: No/Low Risk (score <= 1) Caprini Risk Assessment Model Point Value = 1 Point Value = 2 Point Value = 3 Point Value = 5 Age 41-60 Minor surgery BMI > 25 kg/m2 Swollen legs Varicose veins or History of unexplained or recurrent spontaneous Oral contraceptives or hormone replacement Sepsis (< 1 month) Serious lung disease, including pneumonia (< 1 month) Abnormal pulmonary function Acute myocardial infarction Congestive heart failure (< 1 month) History of inflammatory bowel disease Medical patient at bed rest Age 61-74 Arthroscopic surgery Major open surgery (> 45 min) Laparoscopic surgery (> 45 min) Malignancy Confined to bed (> 72 hours) Immobilizing plaster cast Central venous access Age >= 75 History of VTE Family history of VTE Factor V Leiden Prothrombin [id number] Lupus anticoagulant Anticardiolipin antibodies Elevated serum homocysteine Heparin-induced thrombocytopenia Other congenital or acquired thrombophilia Stroke (< 1 month) Elective arthroplasty Hip, pelvis, or leg fracture Acute spinal cord injury (< 1 month) Prophylaxis Regimen Total Risk Factor Score Risk Level Prophylaxis Regimen 0-1 Low Early ambulation 2 Moderate Order ONE of the following: *Sequential Compression Device (SCD) *Heparin 5000 units SQ BID 3-4 Higher Order ONE of the following medications: *Heparin 5000 units SQ TID *Enoxaparin/Lovenox 40 mg SQ daily (WT < 150 kg, CrCl > 30 mL/min) *Enoxaparin/Lovenox 30 mg SQ daily (WT < 150 kg, CrCl > 10-29 mL/min) *Enoxaparin/Lovenox 30 mg SQ BID (WT < 150 kg, CrCl > 30 mL/min) AND/OR *Sequential Compression Device (SCD) 5 or more Highest Order ONE of the following medications: *Heparin 5000 units SQ TID (Preferred with Epidurals) *Enoxaparin/Lovenox 40 mg SQ daily (WT < 150 kg, CrCl > 30 mL/min) *Enoxaparin/Lovenox 30 mg SQ daily (WT < 150 kg, CrCl > 10-29 mL/min) *Enoxaparin/Lovenox 30 mg SQ BID (WT < 150 kg, CrCl > 30 mL/min) AND *Sequential Compression Device (SCD) Assessment and Plan Assessment and Plan Assessment/plan: 1. Rhabdomyolysis Total creatinine kinase 1087 Creatinine 1.42 IV fluid hydration Monitor renal function/CK 2. Elevated lipase Lipase elevated at 609 CT of the abdomen/pelvis showed no acute findings IV fluid hydration 3. Elevated troponin Troponin 0.11 EKG significant for sinus tachycardia with no ST segment elevations or depressions, personally reviewed Likely secondary to tachycardia/demand ACS rule out pending; serial troponins/EKGs 4. Acute kidney injury Creatinine 1.42, baseline unknown May be a chronic component Monitor renal function IV fluid hydration 5. Transaminitis Suspect secondary to alcohol abuse Monitor 6. Hypertension Patient currently normotensive Holding lisinopril for JENY Monitor blood pressure 7. Alcohol abuse Thiamine/folate/multivitamin CIWA protocol Monitor for signs 8. Thrombocytopenia Likely secondary to alcohol abuse Monitor FEN N.p.o. Electrolytes: Monitor and replete as needed NS at 200 cc/hour Physician Certification 2 Midnight Certification Type: Admission for Inpatient Services Order for Inpatient Services The services are ordered in accordance with Medicare regulations or non- Medicare payer requirements, as applicable. In the case of services not specified as inpatient-only, they are appropriately provided as inpatient services in accordance with the 2-midnight benchmark. Estimated LOS (days): 2 2 days is the estimated time the patient will need to remain in the hospital, assuming treatment plan goals are met and no additional complications. Post-Hospital Plan: Not yet determined Zamzam Del Cid MD November 02, 2017 02:38
[2017-11-02] MEDS: SODIUM CHLOR 0.9% 1000 ML INJ 1,000 ML IV SCH ×2 (03:16→09:04)
[2017-11-02 04:33] VITALS: BP 112/80; PULSE 92; RESP 18; TEMP 99.3; O2SAT 99
[2017-11-02 04:53] VITALS: PULSE 90
[2017-11-02 05:13] LABS: TROPONIN I 0.07 NG/ML (0.02-0.05)
[2017-11-02 07:29] VITALS: BP 131/84; PULSE 104; RESP 20; TEMP 99.8; O2SAT 98
[2017-11-02 07:47] VITALS: PULSE 104
[2017-11-02] MEDS ORDERED: SODIUM CHLORIDE 0.9% FLUSH 10 ML FLUSH IV FLUSH SCH (09:00)
[2017-11-02] MEDS ORDERED: DOCUSATE SODIUM 50 MG/SENNA 8.6 MG TAB PO SCH (09:00)
[2017-11-02 10:16] LABS: TROPONIN I 0.1 NG/ML (0.02-0.05)
--- NOTE | 2017-11-02 11:00 | RADRPT ---
EXAM DATE/TIME: 11/02/2017 10:20 [facility] COMPARISON: No previous studies available for comparison. INDICATIONS : Dysphagia. FLUORO TIME: 1.0 minutes IMAGE COUNT: 1 CONTRAST: Dose as prescribed by speech pathologist. MEDICAL HISTORY : problems swallowing food, dry heaves SURGICAL HISTORY : None. ENCOUNTER: Initial ACUITY: 4 - 6 months PAIN SCORE: 0/10 LOCATION: Bilateral neck FINDINGS: A modified barium swallow was performed with speech pathology. Patient was given a variety of liquids to swallow. For a full detailed report, see report by the speech pathologist. CONCLUSION: No aspiration Aryan Palacio MD FACR on November 02, 2017 at 10:57 Board Certified Radiologist. This report was verified electronically.
[2017-11-02 11:37] VITALS: BP 126/78; PULSE 119; RESP 24; TEMP 101; O2SAT 97
--- NOTE | 2017-11-02 13:06 | PD.CONS ---
HPI History of Present Illness This is a 57 year old with PMH significant for ETOH abuse, bipolar disorder, HTN , and hyperlipidemia who presented to the ER yesterday with complaints of nausea , vomiting, and dysphagia. Pt reports nausea and vomiting for the past six months that has been getting progressively worse. Not always related to PO intake but has been unable to eat. Also complaining of dysphagia for the past 6 -7 weeks that has been getting progressively worse, states only with solid foods. Denies issues with liquids. Denies odynophagia. Reports the food feels like it gets stuck and then he has to regurgitate it back up. Also having daily symptoms of acid reflux, takes Zantac as needed OTC with some relief. Denies abdominal pain. Reports chronic diarrhea, multiple BMs a day, associated fecal urgency and incontinence. Denies fever, chills, recent travel, recent antibiotics, sick contacts. Also has had approx 20 lb weight loss over the past three weeks. Reports last EGD ten years ago and thinks it was a normal exam. Last colonoscopy approx 15 years ago and state this was also a normal exam. Elevated liver enzymes noted, pt denies history of liver issues. Reviewed pts PCP records, he is a [facility] pt, LFTs were WNL in March when they were last checked. Of note, was drinking approx 1 pint of vodka almost daily but denies any ETOH for the past three weeks. (Betzaida Pavon) [facility] Past Medical History Hypertension Alcohol abuse Past Surgical History Right shoulder (Betzaida Pavon) Coded Allergies: No Known Allergies (Verified Adverse Reaction, Unknown, 11/02/17) Family History Negative for CAD/DM Social History Reports drinking approx 1 pint of vodka daily, states no ETOH in 3 weeks Quit smoking 1 1/2 years ago Denies illicit drug use (Betzaida Pavon) Review of Systems Gastrointestinal: COMPLAINS OF: Diarrhea, Nausea, Vomiting, Difficulty Swallowing, Heartburn, DENIES: Abdominal pain, Black stools, Bloody stools, Constipation, Odynophagia, Swelling of Abdomen, Hematemesis (Betzaida Pavon) GI Exam Vitals I&O Vital Signs Date Time Temp Pulse Resp B/P (MAP) Pulse Ox O2 Delivery O2 Flow Rate FiO2 11/02/17 11:37 101.0 119 24 126/78 (94) 97 11/02/17 07:47 104 11/02/17 07:29 99.8 104 20 131/84 (100) 98 11/02/17 04:53 90 11/02/17 04:33 99.3 92 18 112/80 (91) 99 11/02/17 03:20 11/02/17 02:02 91 16 117/76 (90) 98 Nasal Cannula 2.00 11/01/17 23:48 97 18 124/78 (93) 96 Nasal Cannula 2.00 11/01/17 22:55 16 11/01/17 22:07 99.4 119 24 143/90 (107) 97 Nasal Cannula 2.00 11/01/17 21:41 98 Room Air 11/01/17 21:30 22 11/01/17 21:11 100.3 139 18 135/86 (102) 97 I/O 11/01/17 11/01/17 11/01/17 11/02/17 11/02/17 11/02/17 07:00 15:00 23:00 07:00 15:00 23:00 Intake Total 1000 ml Balance 1000 ml Intake IV Total 1000 ml Imaging Last Impressions Modified Barium Swallow 11/02/17 0000 Signed Impressions: Service Date/Time: Thursday, November 02, 2017 10:20 - CONCLUSION: No aspiration Aryan Palacio MD FACR Chest X-Ray 11/01/172134 Signed Impressions: Service Date/Time: October 21:53 - CONCLUSION: No acute disease. Bobby Chance MD Soft Tissue Neck X-Ray 11/01/17 0000 Signed Impressions: Service Date/Time: October 21:51 - CONCLUSION: 1. No acute findings. Bobby Chance MD Neck CT 11/01/17 0000 Signed Impressions: Service Date/Time: October 23:09 - CONCLUSION: Negative Jalen Coronado MD Abdomen/Pelvis CT 11/01/17 0000 Signed Impressions: Service Date/Time: October 23:06 - CONCLUSION: 2.3 cm solid mass arising from the lateral lower pole cortex of the right kidney. Outpatient biopsy with concomitant cryoablation treatment would be recommended for this. No acute CT findings. Jalen Coronado MD Laboratory Test 11/01/17 21:30 11/02/17 04:25 11/02/17 09:00 White Blood Count 2.8 TH/MM3 Red Blood Count 4.95 MIL/MM3 Hemoglobin 16.9 GM/DL Hematocrit 47.4 % Mean Corpuscular Volume 95.9 FL Mean Corpuscular Hemoglobin 34.2 PG Mean Corpuscular Hemoglobin Concent 35.7 % Red Cell Distribution Width 13.9 % Platelet Count 92 TH/MM3 Mean Platelet Volume 9.0 FL Neutrophils (%) (Auto) 65.7 % Lymphocytes (%) (Auto) 26.7 % Monocytes (%) (Auto) 6.9 % Eosinophils (%) (Auto) 0.0 % Basophils (%) (Auto) 0.7 % Neutrophils # (Auto) 1.8 TH/MM3 Lymphocytes # (Auto) 0.7 TH/MM3 Monocytes # (Auto) 0.2 TH/MM3 Eosinophils # (Auto) 0.0 TH/MM3 Basophils # (Auto) 0.0 TH/MM3 CBC Comment AUTO DIFF Differential Comment AUTO DIFF CONFIRMED Platelet Estimate LOW Platelet Morphology Comment NORMAL Prothrombin Time 12.0 SEC Prothromb Time International Ratio 1.2 RATIO Activated Partial Thromboplast Time 34.0 SEC Blood Urea Nitrogen 14 MG/DL Creatinine 1.42 MG/DL Random Glucose 100 MG/DL Total Protein 7.7 GM/DL Albumin 3.0 GM/DL Calcium Level 7.6 MG/DL Alkaline Phosphatase 59 U/L Aspartate Amino Transf (AST/SGOT) 882 U/L Alanine Aminotransferase (ALT/SGPT) 399 U/L Total Bilirubin 0.8 MG/DL Sodium Level 131 MEQ/L Potassium Level 3.5 MEQ/L Chloride Level 96 MEQ/L Carbon Dioxide Level 19.6 MEQ/L Anion Gap 15 MEQ/L Estimat Glomerular Filtration Rate 51 ML/MIN Magnesium Level 1.5 MG/DL Total Creatine Kinase 1087 U/L 419 U/L 895 U/L Creatine Kinase MB 2.8 NG/ML 1.5 NG/ML 2.6 NG/ML Creatine Kinase MB % 0.3 % 0.4 % 0.3 % Troponin I 0.11 NG/ML 0.07 NG/ML 0.10 NG/ML Lipase 609 U/L Ethyl Alcohol Level LESS THAN 3 MG/DL Date/Time Source Procedure Growth Status 11/01/17 22:24 Nasal Aspirate Influenza Types A,B Antigen (TALYA) - Final NEGATIVE FOR FLU A AND B ANTIGEN.... Complete Physical Examination HEENT: Normocephalic; atraumatic CHEST: Even/unlabored CARDIAC: RRR ABDOMEN: Soft, nondistended, nontender; bowel sounds active SKIN: Normal; no rash; no jaundice. TURBINE OPERATOR: No focal deficits; alert and oriented times three. (Betzaida Pavon) Assessment and Plan Plan Assessment: - Nausea and vomiting- reports has been going on for the past six months and progressively getting worse. Denies relation to PO intake but states has been unable to eat. Denies hematemesis and coffee ground emesis States last EGD approx 10 years ago and normal exam - Acid reflux- takes Zantac OTC with some relief, daily symptoms - Dysphagia- reports dysphagia with solids, feels like food is getting stuck and he has tro regurgitate it back up. Denies issues with liquids, odynophagia. Modified barium swallow (11/02) --> No aspiration - Weight loss- Reports approx 20 lb weight loss over the past three weeks CT abdomen and pelvis W IV contrast( 11/01) --> 2.3 cm solid mass arising from the lateral lower pole cortex of the right kidney. Outpatient biopsy with concomitant cryoablation treatment would be recommended for this. No acute CT findings. - Diarrhea- Multiple watery BMs a day with associated urgency and incontinence. Denies hematochezia and melena. Last colonoscopy approx 15 years ago and states normal exam Denies family history of colon cancer - Transaminitis- Currently: AST-882 ALT-339 T bili-0.8 Alk phos-59 Liver enzymes last checked in March were WNL Pt admits to drinking approx 1 pint of vodka almost daily, denies any ETOH in the past 3 weeks. - Elevated lipase - CT notes pancreas to be WNL - Elevated troponin Plan: EGD/colonoscopy on Sunday Clear liquids Sunday Golytely prep NPO after MN Sunday Stool studies Thiamine and folic acid Protonix Liver THOMAS to rule out other causes than ETOH Further recommendations based on clinical course and results of above Pt has been seen and examined by myself and Dr. Wiley and this note is written on his behalf (Bonnette,Betzaida [employer]) Plan Patient was seen and examined, agree with above note, patient will need upper endoscopy and colonoscopy, liver workup is in progress to evaluate the reason for elevated liver function test (Kristi Wiley MD) Betzaida Pavon November 02, 2017 13:06 Kristi Wiley MD November 02, 2017 22:55
--- NOTE | 2017-11-02 13:36 | HHI.PR ---
Subjective Remarks Follow-up for dysphagia to solids, weight loss. Patient is currently doing well. No fever or chills. He reports difficulty swallowing solids but not liquid. No chest pain, shortness of breath, fever or chills. Objective Vitals Vital Signs Date Time Temp Pulse Resp B/P (MAP) Pulse Ox O2 Delivery O2 Flow Rate FiO2 11/02/17 11:37 101.0 119 24 126/78 (94) 97 11/02/17 07:47 104 11/02/17 07:29 99.8 104 20 131/84 (100) 98 11/02/17 04:53 90 11/02/17 04:33 99.3 92 18 112/80 (91) 99 11/02/17 03:20 11/02/17 02:02 91 16 117/76 (90) 98 Nasal Cannula 2.00 11/01/17 23:48 97 18 124/78 (93) 96 Nasal Cannula 2.00 11/01/17 22:55 16 11/01/17 22:07 99.4 119 24 143/90 (107) 97 Nasal Cannula 2.00 11/01/17 21:41 98 Room Air 11/01/17 21:30 22 11/01/17 21:11 100.3 139 18 135/86 (102) 97 I/O 11/01/17 11/01/17 11/01/17 11/02/17 11/02/17 11/02/17 06:59 14:59 22:59 06:59 14:59 22:59 Intake Total 1000 ml Balance 1000 ml Intake IV Total 1000 ml Result Diagram: 11/01/17212911/01/172129 Imaging Last Impressions Modified Barium Swallow 11/02/17 0000 Signed Impressions: Service Date/Time: Thursday, November 02, 2017 10:20 - CONCLUSION: No aspiration Aryan Palacio MD FACR Chest X-Ray 11/01/172134 Signed Impressions: Service Date/Time: October 21:53 - CONCLUSION: No acute disease. Bobby Chance MD Soft Tissue Neck X-Ray 11/01/17 0000 Signed Impressions: Service Date/Time: October 21:51 - CONCLUSION: 1. No acute findings. Bobby Chance MD Neck CT 11/01/17 0000 Signed Impressions: Service Date/Time: October 23:09 - CONCLUSION: Negative Jalen Coronado MD Abdomen/Pelvis CT 11/01/17 0000 Signed Impressions: Service Date/Time: October 23:06 - CONCLUSION: 2.3 cm solid mass arising from the lateral lower pole cortex of the right kidney. Outpatient biopsy with concomitant cryoablation treatment would be recommended for this. No acute CT findings. Jalen Coronado MD Objective Remarks GENERAL: Alert, oriented 3, NAD. SKIN: Warm and dry. HEAD: Normocephalic. EYES: No scleral icterus. No injection or drainage. NECK: Supple, trachea midline. No JVD or lymphadenopathy. CARDIOVASCULAR: Regular rate and rhythm without murmurs, gallops, or rubs. RESPIRATORY: Breath sounds equal bilaterally. No accessory muscle use. GASTROINTESTINAL: Abdomen soft, non-tender, nondistended. MUSCULOSKELETAL: No cyanosis, or edema. BACK: Nontender without obvious deformity. No CVA tenderness. Procedures None A/P Problem List: (1) Dysphagia ICD Code: R13.10 - Dysphagia, unspecified Assessment and Plan Mr. Cross is a 57-year-old male who presented to the emergency department on 11/01/2017 due to dysphagia, nausea and dry heaves. He complains of weight loss as well as difficulty swallowing solids. He reports no problem drinking liquids. He reports about 7-10 pound weight loss in the last month or so. He admits to drinking heavily but quit drinking 3 weeks ago. No chest pain , shortness of breath, fever or chills. Dysphagia -Patient's dysphagia is concerning due to alcohol abuse, weight loss. -We will obtain modified barium swallow and a GI consult. -Lipase elevation to 609 is also likely due to nausea vomiting. Elevated troponin -possibly due to nausea vomiting. Troponin 0 0.11, 0.07 and 0.10. Acute kidney injury -creatinine 1.42. Previously in 2013 creatinine was 0.89. Patient needs to keep himself well-hydrated. Alcohol abuse -continue CIWA protocol. Patient is advised to abstain from alcohol. Full code. Ambulation. Later in the day, patient decided to leave AGAINST MEDICAL ADVICE. Patient was evaluated by nursing staff and was found to be alert and oriented 3. Discharge patient to home AGAINST MEDICAL ADVICE Condition on discharge: no significant change Regular Diet as tolerated Ad Sakshi activity Rx written: None Follow-up with primary care physician as needed. Devante Hurt DO November 02, 2017 1:36 pm
--- NOTE | 2017-11-02 18:17 | EKG ---
Date Performed: 11/01/2017 Time Performed: 21:23:43 PTAGE: 57 years EKG: SINUS TACHYCARDIA SEPTAL MYOCARDIAL INFARCTION ABNORMAL ECG Since the previous tracing, no significant change noted NO PREVIOUS TRACING DOCTOR: Phi Malin Interpretating Date/Time 11/02/2017 16:35:06
--- NOTE | 2017-11-02 18:20 | EKG ---
Date Performed: 11/01/2017 Time Performed: 23:01:22 PTAGE: 57 years EKG: SINUS TACHYCARDIA SEPTAL MYOCARDIAL INFARCTION ABNORMAL ECG PREVIOUS TRACING : 11/01/20172122 DOCTOR: Phi Malin Interpretating Date/Time 11/02/2017 16:35:42
--- NOTE | 2017-11-02 18:23 | EKG ---
Date Performed: 11/02/2017 Time Performed: 04:30:09 PTAGE: 57 years EKG: Sinus rhythm WITH SHORT SC INTERVAL SEPTAL MYOCARDIAL INFARCTION ABNORMAL ECG PREVIOUS TRACING : 11/01/2017 23.01 DOCTOR: Phi Malin Interpretating Date/Time 11/02/2017 16:36:07
--- NOTE | 2017-11-02 18:26 | EKG ---
Date Performed: 11/02/2017 Time Performed: 09:25:51 PTAGE: 57 years EKG: SINUS TACHYCARDIA SEPTAL MYOCARDIAL INFARCTION ABNORMAL ECG PREVIOUS TRACING : 11/02/2017 04.30 DOCTOR: Phi Malin Interpretating Date/Time 11/02/2017 16:36:16
[2017-11-03] MEDS ORDERED: PANTOPRAZOLE SOD 40 MG DELAYED RELEASE TAB PO SCH (09:00)
[2017-11-04] MEDS ORDERED: PEG (High)/E-LYTE SOLN 4000 ML BTL PO ONE (16:00)
[2017-11-05] MEDS ORDERED: THIAMINE HCL 100 MG TAB PO SCH (09:00)
== END 2017-11-02 17:01 | disposition left against medical advice (07) | DRG 683 ==
LOC: NEPE 21:06 → NEDA 11-02 00:27 → NEPFCDU 11-02 03:36
PROVIDERS: ADMIT Hospitalist; ATTEND Hospitalist
DX: N17.9 Acute kidney failure, unspecified (principal); M62.82 Rhabdomyolysis; D69.6 Thrombocytopenia, unspecified; R13.10 Dysphagia, unspecified; I10 Essential (primary) hypertension; F10.10 Alcohol abuse, uncomplicated; F31.9 Bipolar disorder, unspecified; E78.5 Hyperlipidemia, unspecified; Z87.891 Personal history of nicotine dependence
CPT/HCPCS: 70360; 70491; 71046; 74177; 74230; 80053; 80307; 82550; 82552; 83690; 83735; 84484; 85025; 85610; 85730; 87081; 87804; 87880; 93005; G8996-GN; G8997-GN; G8998-GN; J1885; J2060; J2405; J3411; J7030; J7040; Q9967

== ENCOUNTER 2017-11-02 14:26 | Inpatient (IN) | payer SELFPAY ==
[2017-11-02] MEDS ORDERED: SODIUM CHLORIDE 0.9% FLUSH 10 ML FLUSH IV FLUSH ×3 (15:00→21:00)
[2017-11-02] MEDS ORDERED: ONDANSETRON HCL 4 MG/2 ML VIAL IVP (15:00)
[2017-11-02] MEDS ORDERED: cloNIDine HCL 0.1 MG TAB PO (15:00)
[2017-11-02] MEDS ORDERED: MAGNESIUM HYDROXIDE SUSP 30 ML CUP PO ×2 (15:00→20:45)
[2017-11-02] MEDS ORDERED: SENNOSIDES 8.6 MG TAB PO ×2 (15:00→20:45)
[2017-11-02] MEDS ORDERED: LACTULOSE SYRUP 20 GM/30 ML CUP PO ×2 (15:00→20:45)
[2017-11-02] MEDS ORDERED: LORazepam 2 MG/ML VIAL IV PUSH (15:00)
[2017-11-02] MEDS ORDERED: BISACODYL 10 MG SUPP RECTAL (15:00)
[2017-11-02] MEDS ORDERED: HALOPERIDOL LACTATE 5 MG/ML AMP IM (15:00)
[2017-11-02] MEDS ORDERED: FLUMAZENIL 0.5 MG/5 ML VIAL IV PUSH (15:00)
[2017-11-02] MEDS ORDERED: NALOXONE HCL 0.4 MG/ML AMP IV PUSH (15:00)
[2017-11-02] MEDS: SODIUM CHLOR 0.9% 1000 ML INJ 1,000 ML IV ×2 (15:46→22:30)
[2017-11-02] MEDS: LORazepam 2 MG/ML VIAL IV PUSH ×4 (16:05→23:19)
[2017-11-02 16:07] LABS: IRON (FE) 117 MCG/DL (65-175)
[2017-11-02 16:22] LABS: % SATURATION IRON PROFILE 67.9 % (20-50); TOTAL IRON BINDING CAPACITY 172 MCG/DL (250-450); TRANSFERRIN IRON PROFILE 123 MG/DL (200-360)
[2017-11-02 17:11] LABS: FERRITIN 41665 NG/ML (26-388)
[2017-11-02 18:30] LABS: BLOOD GAS BASE EXCESS -7.3 mmol/L (-2-2); BLOOD GAS CARBOXYHEMOGLOBIN 0.8 % (0-4); BLOOD GAS HCO3 16 mmol/L (22-26); BLOOD GAS O2 HGB SATURATION 96 % (90-100); BLOOD GAS OXYGEN CONTENT 20.3 Vol % (12.0-20.0); BLOOD GAS PCO2 22 mmHg (38-42); BLOOD GAS PO2 85 mmHg (61-120); BLOOD GAS TOTAL HGB 15.1 G/DL (12.0-16.0); TEMP CORR TO 98.6
[2017-11-02 18:31] LABS: CRITICAL VALUE YES; DRAW SITE RT RADIAL; FIO2 21 %; NUMBER OF ARTERIAL PUNCTURES 1; OXYGEN DEVICE ROOM AIR; STAT YES; ULNAR PULSE PRESENT
[2017-11-02 18:43] LABS: HEPATITIS B SURFACE ANTIGEN NONREACTIVE (NONREACTIVE)
[2017-11-02 19:07] LABS: HEPATITIS B CORE AB IGM REACTIVE (NONREACTIVE); HEPATITIS C AB IgG NONREACTIVE (NONREACTIVE)
[2017-11-02 19:08] LABS: HEPATITIS A AB IGM NONREACTIVE (NONREACTIVE)
[2017-11-02 19:15] LABS: ANION GAP 14 MEQ/L (5-15); BICARBONATE 17.3 MEQ/L (21.0-32.0); BLOOD UREA NITROGEN 14 MG/DL (7-18); CHLORIDE 103 MEQ/L (98-107); CREATININE 1.18 MG/DL (0.60-1.30); GLOMERULAR FILTRATION RATE 63 ML/MIN (>89); GLUCOSE,RANDOM 86 MG/DL (74-106); POTASSIUM 3.3 MEQ/L (3.5-5.1); SODIUM (NA) 134 MEQ/L (136-145)
[2017-11-02 19:15] LABS: AMMONIA 23 MCMOL/L (11-32)
[2017-11-02 19:18] LABS: LACTIC ACID 1.4 mmol/L (0.4-2.0)
[2017-11-02 19:29] LABS: CALCIUM-PROTEIN CORRECTED 7.5 MG/DL (8.5-10.1); TOTAL PROTEIN 6.2 GM/DL (6.4-8.2)
[2017-11-02] MEDS ORDERED: POTASSIUM PHOSPHATE MONOBASIC 500 MG TAB PO/TUBE (20:45)
[2017-11-02] MEDS ORDERED: SODIUM PHOSPHATE INJ 30 MMOL in SODIUM CHLOR 0.9% 250 ML INJ 240 ML IV (20:45)
[2017-11-02] MEDS ORDERED: MAGNESIUM SULFATE INJ 4 GM in SODIUM CHLORIDE 0.9% INJ 92 ML IV (20:45)
[2017-11-02] MEDS ORDERED: CHLORHEXIDINE GLUCONATE 2 % 1 PACK (2 CLOTHS) TOP (20:45)
[2017-11-02] MEDS ORDERED: MAGNESIUM OXIDE 400 MG TAB PO (20:45)
[2017-11-02] MEDS ORDERED: GLUCAGON 1 MG/ML VIAL OTHER ×2 (20:45)
[2017-11-02] MEDS ORDERED: ONDANSETRON HCL 4 MG/2 ML VIAL IV PUSH (20:45)
[2017-11-02] MEDS ORDERED: POTASSIUM CHLORIDE 25 MEQ EFFERVESCENT TAB PO (20:45)
[2017-11-02] MEDS ORDERED: POTASSIUM CHLOR 40 MEQ PREMIX 100 ML IV ×2 (20:45)
[2017-11-02] MEDS: NURSING INFORMATION XX (20:45)
[2017-11-02] MEDS ORDERED: POTASSIUM PHOSPHATE MONOBASIC 500 MG TAB PO (20:45)
[2017-11-02] MEDS ORDERED: MAGNESIUM SULFATE INJ 2 GM in SODIUM CHLORIDE 0.9% INJ 96 ML IV (20:45)
[2017-11-02] MEDS ORDERED: RESP: ALBUTEROL 2.5 MG/3 ML NEB (PRN) INH (20:45)
[2017-11-02] MEDS ORDERED: DEXTROSE 50% IN WATER 50 ML VIAL(D50) IV PUSH (20:45)
[2017-11-02] MEDS: SODIUM CHLORIDE 0.9% FLUSH 10 ML FLUSH IV FLUSH (21:00)
[2017-11-02] MEDS: INSULIN NovoLIN REGULAR SUPPLEMENTAL SCALE SQ (21:00)
[2017-11-02] MEDS: DOCUSATE SODIUM 50 MG/SENNA 8.6 MG TAB PO (21:00)
[2017-11-02] MEDS: HEPARIN SODIUM - SQ 10,000 UNITS/ML VIAL SQ (21:14)
[2017-11-02] MEDS ORDERED: CALCIUM GLUCONATE INJ 1 GM in SODIUM CHLORIDE 0.9% INJ 100 ML IV (22:00)
[2017-11-02 22:29] LABS: SODIUM,RANDOM URINE 124 MEQ/L
[2017-11-02 22:29] LABS: CREATININE, RANDOM URINE 108.7 MG/DL
[2017-11-02] MEDS: CALCIUM GLUCONATE INJ 1 GM in SODIUM CHLORIDE 0.9% INJ 100 ML IV (22:30)
[2017-11-02] MEDS: MULTIVITAMIN INJ 10 ML, THIAMINE INJ 100 MG, FOLIC ACID INJ 1 MG in SODIUM CHLOR 0.45% ... IV (22:30)
[2017-11-02 22:49] LABS: URINE FOR EOSINOPHILS NONE SEEN /HPF (NONE SEEN)
[2017-11-03] MEDS: SODIUM CHLOR 0.9% 1000 ML INJ 1,000 ML IV ×2 (00:13→10:00)
[2017-11-03] MEDS: LORazepam 2 MG/ML VIAL IV PUSH (00:51)
[2017-11-03 01:15] LABS: MRSA PCR SURVEILLANCE MRSA NOT DETECTED (NOT DETECT)
[2017-11-03] MEDS: DEXMEDETOMIDINE INJ 200 MCG in SODIUM CHLORIDE 0.9% INJ 50 ML IV ×3 (02:26→17:55)
[2017-11-03] MEDS ORDERED: MULTIVITAMIN INJ 10 ML, FOLIC ACID INJ 1 MG in SODIUM CHLORID 0.9% 500 ML INJ 500 ML IV (04:00)
[2017-11-03] MEDS: CHLORHEXIDINE GLUCONATE 2 % 1 PACK (2 CLOTHS) TOP (04:00)
[2017-11-03] MEDS: RESP: ALBUTEROL 2.5 MG/IPRATROPIUM 0.5 MG NEB (SCH) INH ×4 (04:38→22:08)
[2017-11-03] MEDS: THIAMINE INJ 100 MG in SODIUM CHLORIDE 0.9% INJ 100 ML IV (04:59)
[2017-11-03] MEDS: HEPARIN SODIUM - SQ 10,000 UNITS/ML VIAL SQ (05:24)
[2017-11-03] MEDS: ACETAMINOPHEN 1000 MG/100 ML 100 ML IV (05:25)
[2017-11-03 05:35] LABS: BLOOD GAS CARBOXYHEMOGLOBIN 0.9 % (0-4); BLOOD GAS HCO3 17 mmol/L (22-26); BLOOD GAS O2 HGB SATURATION 95 % (90-100); BLOOD GAS OXYGEN CONTENT 18.6 Vol % (12.0-20.0); BLOOD GAS PCO2 25 mmHg (38-42); BLOOD GAS PO2 81 mmHg (61-120); BLOOD GAS TOTAL HGB 13.9 G/DL (12.0-16.0); TEMP CORR TO 98.6
[2017-11-03 05:36] LABS: CRITICAL VALUE NO
[2017-11-03 05:37] LABS: DRAW SITE LT BRACHIAL; FIO2 21 %; NUMBER OF ARTERIAL PUNCTURES 1; STAT NO; ULNAR PULSE PRESENT
[2017-11-03 05:51] LABS: AMMONIA 23 MCMOL/L (11-32)
[2017-11-03 07:02] LABS: AUTOMATED NEUTROPHIL # 1.2 TH/MM3 (1.8-7.7); BASOPHIL % 0.4 % (0.0-2.0); EOSINOPHIL % 0.1 % (0.0-4.0); HEMATOCRIT 41.5 % (39.0-51.0); HEMOGLOBIN 14.6 GM/DL (13.0-17.0); LYMPH % 36.2 % (9.0-44.0); LYMPHOCYTE # 0.8 TH/MM3 (1.0-4.8); MEAN CELL VOLUME 96.5 FL (80.0-100.0); MEAN CORPUSCULAR HGB CONC 35.3 % (32.0-36.0); MONOCYTE # 0.3 TH/MM3 (0-0.9); NEUT % 51.3 % (16.0-70.0); PLATELET COUNT 50 TH/MM3 (150-450); RED CELL DISTRIBUTION WIDTH 14.1 % (11.6-17.2); WHITE BLOOD COUNT 2.3 TH/MM3 (4.0-11.0)
[2017-11-03 07:04] LABS: HEMO FLAGS AUTO DIFF
[2017-11-03 07:18] LABS: HAPTOGLOBIN 328 MG/DL (30-200)
[2017-11-03 07:26] LABS: APTT (PATIENT) 41.4 SEC (24.3-30.1); FIBRINOGEN 261 mg/dL (227-377); INTERNATIONAL NORMALIZED RATIO 1.2 RATIO
[2017-11-03 07:30] LABS: CORTISOL 21.7 MCG/DL
[2017-11-03 07:55] LABS: ALBUMIN 2.4 GM/DL (3.4-5.0); ALKALINE PHOSPHATASE 49 U/L (45-117); ALT (GPT) 519 U/L (12-78); AMYLASE 99 U/L (25-115); ANION GAP 14 MEQ/L (5-15); AST (GOT) 1261 U/L (15-37); BICARBONATE 17.4 MEQ/L (21.0-32.0); BLOOD UREA NITROGEN 12 MG/DL (7-18); CALCIUM 7.2 MG/DL (8.5-10.1); CALCIUM-PROTEIN CORRECTED 7.7 MG/DL (8.5-10.1); CHLORIDE 103 MEQ/L (98-107); CHOLESTEROL 63 MG/DL (120-200); CHOLESTEROL/ HDL RATIO 5.72 RATIO; CREATINE KINASE 1269 U/L (39-308); CREATININE 1.08 MG/DL (0.60-1.30); GLOMERULAR FILTRATION RATE 70 ML/MIN (>89); GLUCOSE,RANDOM 77 MG/DL (74-106); LDH SERUM 1650 U/L (87-241); LDL CHOLESTEROL 25 MG/DL (0-99); LIPASE 481 U/L (73-393); MAGNESIUM 1.7 MG/DL (1.5-2.5); PHOSPHORUS 2.2 MG/DL (2.5-4.9); POTASSIUM 3.1 MEQ/L (3.5-5.1); SODIUM (NA) 134 MEQ/L (136-145); TOTAL BILIRUBIN ADULT 0.7 MG/DL (0.2-1.0); TOTAL PROTEIN 6.2 GM/DL (6.4-8.2); TRANSFERRIN 101 MG/DL (200-360); TRIGLYCERIDES 133 MG/DL (42-150); TROPONIN I 0.24 NG/ML (0.02-0.05)
[2017-11-03 07:56] LABS: PLATELET ESTIMATE SMEAR LOW (NORMAL); PLATELET MORPHOLOGY NORMAL (NORMAL); SCAN/DIFF AUTO DIFF CONFIRMED
[2017-11-03] MEDS: INSULIN NovoLIN REGULAR SUPPLEMENTAL SCALE SQ ×4 (08:00→20:56)
[2017-11-03 08:12] LABS: CKMB 1.4 NG/ML (0.5-3.6); CKMB % 0.1 % (0.0-4.0)
[2017-11-03] MEDS: SODIUM BICARBONATE 8.4% INJ 50 MEQ/50 ML SYR (08:12)
[2017-11-03] MEDS: SODIUM CHLORIDE 0.9% FLUSH 10 ML FLUSH IV FLUSH ×2 (08:51→20:56)
[2017-11-03] MEDS: FOLIC ACID 1 MG TAB PO (08:51)
[2017-11-03] MEDS: ARTIFICIAL TEARS OPTH SOLN 15 ML BTL EACH EYE ×3 (08:51→18:00)
[2017-11-03] MEDS: DOCUSATE SODIUM 50 MG/SENNA 8.6 MG TAB PO ×2 (08:52→20:56)
[2017-11-03] MEDS: PANTOPRAZOLE SOD 40 MG DELAYED RELEASE TAB PO (08:52)
[2017-11-03 09:18] LABS: BLOOD GAS BASE EXCESS -6.2 mmol/L (-2-2); BLOOD GAS CARBOXYHEMOGLOBIN 0.8 % (0-4); BLOOD GAS HCO3 18 mmol/L (22-26); BLOOD GAS METHEMOGLOBIN 0.8 % (0-2); BLOOD GAS O2 HGB SATURATION 95 % (90-100); BLOOD GAS OXYGEN CONTENT 17.5 Vol % (12.0-20.0); BLOOD GAS PCO2 29 mmHg (38-42); BLOOD GAS PO2 82 mmHg (61-120); BLOOD GAS TOTAL HGB 13.1 G/DL (12.0-16.0); CRITICAL VALUE NO; FIO2 21 %; TEMP CORR TO 98.6
[2017-11-03 09:19] LABS: DRAW SITE LT RADIAL; NUMBER OF ARTERIAL PUNCTURES 1; STAT NO; ULNAR PULSE PRESENT
[2017-11-03] MEDS: POTASSIUM CHLOR 20 MEQ PREMIX 100 ML IV ×4 (10:00→16:00)
[2017-11-03] MEDS: PIPERACIL-TAZO 3.375 GM PREMIX 50 ML IV ×3 (10:00→22:26)
[2017-11-03] MEDS ORDERED: TERBUTALINE INJ 1 MG/ML AMP SQ (10:30)
[2017-11-03] MEDS ORDERED: NOREPINEPHRINE INJ 4 MG in SODIUM CHLOR 0.9% 250 ML INJ 246 ML IV (10:30)
[2017-11-03] MEDS: IOHEXOL 350 MG/ML 10 ML VIAL (for RAD DIAG) IVCONTRAST (10:47)
[2017-11-03] MEDS: VANCOMYCIN INJ 1,000 MG in SODIUM CHLOR 0.9% 250 ML INJ 250 ML IV (11:00)
[2017-11-03 14:08] LABS: BACTERIA, URINE OCC /hpf; BLOOD, URINE LARGE (NEG); GLUCOSE,URINE NEG (NEG); KETONE, URINE 10 mg/dL (NEG); MUCUS URINE FEW /lpf (OCC); NITRITE,URINE NEG (NEG); URINE COLOR YELLOW (YELLW/STRAW); URINE LEUKOCYTE ESTERASE NEG (NEG)
[2017-11-03 14:10] LABS: BILIRUBIN, URINE NEG (NEG); COMMENT (UR) CATH-CULTURE IND; CULTURE IF INDICATED CATH CULTURE IND
[2017-11-03 15:43] LABS: PHOSPHORUS 1.9 MG/DL (2.5-4.9)
[2017-11-03 17:43] LABS: HEPATITIS B SURFACE ANTIGEN NONREACTIVE (NONREACTIVE)
[2017-11-03] MEDS: DEXT 5%-NACL 0.9% 1000 ML INJ 1,000 ML IV (17:54)
[2017-11-03] MEDS: POTASSIUM PHOSPHATE INJ 30 MMOL in SODIUM CHLOR 0.9% 250 ML INJ 250 ML IV (17:54)
[2017-11-04] MEDS: PIPERACIL-TAZO 3.375 GM PREMIX 50 ML IV ×4 (03:29→22:00)
[2017-11-04] MEDS: THIAMINE INJ 100 MG in SODIUM CHLORIDE 0.9% INJ 100 ML IV (03:43)
[2017-11-04] MEDS: CHLORHEXIDINE GLUCONATE 2 % 1 PACK (2 CLOTHS) TOP (04:00)
[2017-11-04] MEDS: DEXT 5%-NACL 0.9% 1000 ML INJ 1,000 ML IV ×2 (04:00→14:00)
[2017-11-04] MEDS: RESP: ALBUTEROL 2.5 MG/IPRATROPIUM 0.5 MG NEB (SCH) INH ×4 (06:08→21:02)
[2017-11-04 07:02] LABS: HEMATOCRIT 45.2 % (39.0-51.0); HEMO FLAGS AUTO DIFF; MEAN CELL VOLUME 96.9 FL (80.0-100.0); MEAN CORPUSCULAR HEMOGLOBIN 34.3 PG (27.0-34.0); MEAN CORPUSCULAR HGB CONC 35.4 % (32.0-36.0); MEAN PLATELET VOLUME 10.7 FL (7.0-11.0); PLATELET COUNT 36 TH/MM3 (150-450); RED BLOOD COUNT 4.66 MIL/MM3 (4.50-5.90); RED CELL DISTRIBUTION WIDTH 14.3 % (11.6-17.2); WHITE BLOOD COUNT 3.1 TH/MM3 (4.0-11.0)
[2017-11-04] MEDS: INSULIN NovoLIN REGULAR SUPPLEMENTAL SCALE SQ ×4 (08:00→21:00)
[2017-11-04] MEDS: FOLIC ACID 1 MG TAB PO (08:09)
[2017-11-04] MEDS: PANTOPRAZOLE SOD 40 MG DELAYED RELEASE TAB PO (08:09)
[2017-11-04] MEDS: ACETAMINOPHEN 325 MG TAB PO (08:10)
[2017-11-04] MEDS: DEXMEDETOMIDINE INJ 200 MCG in SODIUM CHLORIDE 0.9% INJ 50 ML IV (08:21)
[2017-11-04] MEDS: ARTIFICIAL TEARS OPTH SOLN 15 ML BTL EACH EYE ×3 (09:00→18:00)
[2017-11-04] MEDS: SODIUM CHLORIDE 0.9% FLUSH 10 ML FLUSH IV FLUSH ×2 (09:00→21:00)
[2017-11-04] MEDS: DOCUSATE SODIUM 50 MG/SENNA 8.6 MG TAB PO ×2 (09:00→21:00)
[2017-11-04 09:05] LABS: ATYPICAL LYMPHOCYTES 9 % (0-0); BANDS 4 % (0-6); CORRECTED NUCLEATED RBC 1 /100 WBC (0-0); LYMPHOCYTES 27 % (9-44); MONOCYTES 5 % (0-8); NEUTROPHIL # MANUAL DIFF 1.7 TH/MM3 (1.8-7.7); NUCLEATED RED BLOOD CELL 1 (0-0); PLASMA CELLS 3 % (0-0); POLYS (SEG NEUTROPHILS) 52 % (16-70); WBC DIFF SAMPLE 100
[2017-11-04 09:07] LABS: PLATELET ESTIMATE SMEAR LOW (NORMAL); PLATELET MORPHOLOGY ENLARGED (NORMAL); SCAN/DIFF FINAL DIFF MANUAL
[2017-11-04 11:41] LABS: INTERNATIONAL NORMALIZED RATIO 1.2 RATIO; PROTHROMBIN TIME - PATIENT 12.6 SEC (9.8-11.6)
[2017-11-04 12:33] LABS: ALKALINE PHOSPHATASE 53 U/L (45-117); ALT (GPT) 620 U/L (12-78); ANION GAP 9 MEQ/L (5-15); AST (GOT) 1569 U/L (15-37); BICARBONATE 19.5 MEQ/L (21.0-32.0); BLOOD UREA NITROGEN 11 MG/DL (7-18); CALCIUM 6.8 MG/DL (8.5-10.1); CALCIUM-PROTEIN CORRECTED 7.5 MG/DL (8.5-10.1); CHLORIDE 110 MEQ/L (98-107); CREATININE 1.25 MG/DL (0.60-1.30); GLOMERULAR FILTRATION RATE 59 ML/MIN (>89); GLUCOSE,RANDOM 107 MG/DL (74-106); MAGNESIUM 1.6 MG/DL (1.5-2.5); POTASSIUM 3.5 MEQ/L (3.5-5.1); SODIUM (NA) 138 MEQ/L (136-145); TOTAL BILIRUBIN ADULT 0.8 MG/DL (0.2-1.0); TOTAL PROTEIN 5.8 GM/DL (6.4-8.2)
[2017-11-04] MEDS: SODIUM CHLOR 0.9% 1000 ML INJ 1,000 ML IV (12:45)
[2017-11-04 13:17] LABS: HEMOGLOBIN A1C 5.9 % (4.3-6.0); HEMOGLOBIN A1a 0.8 %; HEMOGLOBIN A1b 0.9 %; HEMOGLOBIN Ao 84.2 %; HEMOGLOBIN F 1.2 %; HEMOGLOBIN LA1C 1.8 %; HEMOGLOBIN P3 3.5 %
[2017-11-04] MEDS: CALCIUM GLUCONATE INJ 2 GM in DEXTROSE 5% IN WATER 100ML INJ 100 ML IV (14:00)
[2017-11-04] MEDS: POTASSIUM CHLOR 20 MEQ PREMIX 100 ML IV ×2 (15:23→17:24)
[2017-11-04] MEDS ORDERED: PEG (High)/E-LYTE SOLN 4000 ML BTL PO (16:00)
[2017-11-04 17:24] LABS: C. DIFF EPI 027 PRESUMPTIVE NEGATIVE (NEGATIVE); C. DIFF TOXIN PCR NEGATIVE (NEGATIVE)
[2017-11-05] MEDS: CHLORHEXIDINE GLUCONATE 2 % 1 PACK (2 CLOTHS) TOP ×2 (04:00→20:47)
[2017-11-05] MEDS: PIPERACIL-TAZO 3.375 GM PREMIX 50 ML IV ×3 (04:22→16:00)
[2017-11-05] MEDS: RESP: ALBUTEROL 2.5 MG/IPRATROPIUM 0.5 MG NEB (SCH) INH ×4 (04:43→21:07)
[2017-11-05] MEDS: LORazepam 1 MG TAB PO (04:57)
[2017-11-05] MEDS: INSULIN NovoLIN REGULAR SUPPLEMENTAL SCALE SQ ×4 (08:00→20:53)
[2017-11-05] MEDS: FOLIC ACID 1 MG TAB PO (08:08)
[2017-11-05] MEDS: PANTOPRAZOLE SOD 40 MG DELAYED RELEASE TAB PO (08:08)
[2017-11-05] MEDS: ACETAMINOPHEN 325 MG TAB PO (08:08)
[2017-11-05] MEDS: THIAMINE HCL 100 MG TAB PO (08:08)
[2017-11-05] MEDS: ARTIFICIAL TEARS OPTH SOLN 15 ML BTL EACH EYE ×3 (08:08→17:11)
[2017-11-05] MEDS: DOCUSATE SODIUM 50 MG/SENNA 8.6 MG TAB PO ×2 (08:08→20:47)
[2017-11-05] MEDS: SODIUM CHLORIDE 0.9% FLUSH 10 ML FLUSH IV FLUSH ×2 (08:09→20:46)
[2017-11-05] MEDS: DEXT 5%-NACL 0.9% 1000 ML INJ 1,000 ML IV ×3 (10:00→20:55)
[2017-11-05 12:59] LABS: ANA SCREEN NEG (NEG)
[2017-11-05] MEDS: LORazepam 2 MG/ML VIAL IV PUSH (20:55)
[2017-11-06] MEDS: LORazepam 2 MG TAB PO ×3 (01:35→20:24)
[2017-11-06] MEDS: ACETAMINOPHEN 325 MG TAB PO (01:36)
[2017-11-06] MEDS: RESP: ALBUTEROL 2.5 MG/IPRATROPIUM 0.5 MG NEB (SCH) INH ×4 (02:53→21:00)
[2017-11-06] MEDS: DEXT 5%-NACL 0.9% 1000 ML INJ 1,000 ML IV (06:00)
[2017-11-06] MEDS: INSULIN NovoLIN REGULAR SUPPLEMENTAL SCALE SQ ×4 (08:00→20:25)
[2017-11-06] MEDS: SODIUM CHLORIDE 0.9% FLUSH 10 ML FLUSH IV FLUSH ×2 (08:08→20:25)
[2017-11-06] MEDS: DOCUSATE SODIUM 50 MG/SENNA 8.6 MG TAB PO ×2 (08:08→20:25)
[2017-11-06] MEDS: LORazepam 1 MG TAB PO ×3 (09:01→23:30)
[2017-11-06] MEDS: ARTIFICIAL TEARS OPTH SOLN 15 ML BTL EACH EYE ×3 (09:01→17:54)
[2017-11-06] MEDS: THIAMINE HCL 100 MG TAB PO (09:01)
[2017-11-06] MEDS: FOLIC ACID 1 MG TAB PO (09:01)
[2017-11-06] MEDS: PANTOPRAZOLE SOD 40 MG DELAYED RELEASE TAB PO (09:01)
[2017-11-06 10:41] LABS: ALPHA-1-ANTITRYPSIN 195 mg/dL (100 - 190)
[2017-11-06] MEDS: POTASSIUM CHLORIDE INJ 10 MEQ in DEXT 5%-NACL 0.9% 1000 ML INJ 1,000 ML IV ×2 (10:42→22:03)
[2017-11-06 14:11] LABS: SMOOTH MUSCLE TOTAL AUTOABS Negative (Negative)
[2017-11-07] MEDS: RESP: ALBUTEROL 2.5 MG/IPRATROPIUM 0.5 MG NEB (SCH) INH ×4 (02:49→21:56)
[2017-11-07 03:52] LABS: CD 19 PERCENT 9 % (6-29); CD19 ABSOLUTE 101 (110-660); CD3 ABSOLUTE 754 (840-3060); CD3-/CD16+CD56+ PERCENT 19 % (4-25); CD3-CD16+CD56+ (ABSOLUTE) 202 (70-760); CD4/CD8 RATIO 1.7 (0.86-5.00); CD8 ABSOLUTE 280 (180-1170); LYMPHOCYTES, ABSOLUTE 1061 (850-3900)
[2017-11-07] MEDS: CHLORHEXIDINE GLUCONATE 2 % 1 PACK (2 CLOTHS) TOP (04:00)
[2017-11-07] MEDS: LORazepam 1 MG TAB PO (04:16)
[2017-11-07] MEDS: POTASSIUM CHLORIDE INJ 10 MEQ in DEXT 5%-NACL 0.9% 1000 ML INJ 1,000 ML IV ×2 (05:32→17:25)
[2017-11-07] MEDS: INSULIN NovoLIN REGULAR SUPPLEMENTAL SCALE SQ ×4 (08:00→22:19)
[2017-11-07] MEDS: FOLIC ACID 1 MG TAB PO ×2 (09:00→15:01)
[2017-11-07] MEDS: THIAMINE HCL 100 MG TAB PO ×2 (09:00→15:01)
[2017-11-07] MEDS: DOCUSATE SODIUM 50 MG/SENNA 8.6 MG TAB PO ×2 (09:00→22:19)
[2017-11-07] MEDS: PANTOPRAZOLE SOD 40 MG DELAYED RELEASE TAB PO ×2 (09:00→15:01)
[2017-11-07 09:37] LABS: HEMATOCRIT 38.4 % (39.0-51.0); HEMOGLOBIN 13.3 GM/DL (13.0-17.0); MEAN CELL VOLUME 97.3 FL (80.0-100.0); MEAN CORPUSCULAR HEMOGLOBIN 33.8 PG (27.0-34.0); MEAN CORPUSCULAR HGB CONC 34.7 % (32.0-36.0); MEAN PLATELET VOLUME 8.8 FL (7.0-11.0); PLATELET COUNT 78 TH/MM3 (150-450); RED BLOOD COUNT 3.95 MIL/MM3 (4.50-5.90); RED CELL DISTRIBUTION WIDTH 14.6 % (11.6-17.2); WHITE BLOOD COUNT 5.2 TH/MM3 (4.0-11.0)
[2017-11-07] MEDS: LORazepam 2 MG/ML VIAL IV PUSH ×3 (09:41→22:32)
[2017-11-07] MEDS: ARTIFICIAL TEARS OPTH SOLN 15 ML BTL EACH EYE ×3 (09:43→18:00)
[2017-11-07 09:46] LABS: HEMO FLAGS AUTO DIFF
[2017-11-07] MEDS: SODIUM CHLORIDE 0.9% FLUSH 10 ML FLUSH IV FLUSH ×2 (09:46→22:19)
[2017-11-07 09:48] LABS: ALBUMIN 1.8 GM/DL (3.4-5.0); ANION GAP 10 MEQ/L (5-15); AST (GOT) 500 U/L (15-37); BICARBONATE 17.9 MEQ/L (21.0-32.0); BLOOD UREA NITROGEN 4 MG/DL (7-18); CALCIUM 7.6 MG/DL (8.5-10.1); CHLORIDE 112 MEQ/L (98-107); CREATININE 0.79 MG/DL (0.60-1.30); GLOMERULAR FILTRATION RATE 101 ML/MIN (>89); GLUCOSE,RANDOM 79 MG/DL (74-106); MAGNESIUM 1.8 MG/DL (1.5-2.5); SODIUM (NA) 140 MEQ/L (136-145)
[2017-11-07 09:49] LABS: ALT (GPT) 353 U/L (12-78); PHOSPHORUS 2.2 MG/DL (2.5-4.9)
[2017-11-07 09:50] LABS: POTASSIUM 3.9 MEQ/L (3.5-5.1)
[2017-11-07 09:51] LABS: ALKALINE PHOSPHATASE 88 U/L (45-117); CREATINE KINASE 563 U/L (39-308); TOTAL BILIRUBIN ADULT 1.1 MG/DL (0.2-1.0); TOTAL PROTEIN 6.1 GM/DL (6.4-8.2)
[2017-11-07 10:49] LABS: CKMB 2.2 NG/ML (0.5-3.6); CKMB % 0.4 % (0.0-4.0)
[2017-11-07 10:58] LABS: BANDS 1 % (0-6); EOSINOPHILS 2 % (0-4); LYMPHOCYTES 13 % (9-44); MONOCYTES 6 % (0-8); NEUTROPHIL # MANUAL DIFF 4.1 TH/MM3 (1.8-7.7); POLYS (SEG NEUTROPHILS) 78 % (16-70); WBC DIFF SAMPLE 100
[2017-11-07 11:00] LABS: PLATELET ESTIMATE SMEAR LOW (NORMAL); PLATELET MORPHOLOGY NORMAL (NORMAL); SCAN/DIFF FINAL DIFF MANUAL
[2017-11-07] MEDS ORDERED: LORazepam 2 MG/ML VIAL IV PUSH ×2 (12:30→15:00)
[2017-11-07] MEDS ORDERED: LORazepam 0.5 MG TAB PO (14:00)
[2017-11-08] MEDS: POTASSIUM CHLORIDE INJ 10 MEQ in DEXT 5%-NACL 0.9% 1000 ML INJ 1,000 ML IV ×3 (01:57→22:18)
[2017-11-08] MEDS: LORazepam 2 MG/ML VIAL IV PUSH ×2 (03:06→19:53)
[2017-11-08] MEDS: RESP: ALBUTEROL 2.5 MG/IPRATROPIUM 0.5 MG NEB (SCH) INH ×4 (03:27→20:15)
[2017-11-08] MEDS: CHLORHEXIDINE GLUCONATE 2 % 1 PACK (2 CLOTHS) TOP (04:01)
[2017-11-08] MEDS: DOCUSATE SODIUM 50 MG/SENNA 8.6 MG TAB PO ×2 (08:50→21:00)
[2017-11-08] MEDS: FOLIC ACID 1 MG TAB PO (08:50)
[2017-11-08] MEDS: THIAMINE HCL 100 MG TAB PO (08:50)
[2017-11-08] MEDS: PANTOPRAZOLE SOD 40 MG DELAYED RELEASE TAB PO (08:50)
[2017-11-08] MEDS: ARTIFICIAL TEARS OPTH SOLN 15 ML BTL EACH EYE ×3 (08:51→17:58)
[2017-11-08] MEDS: SODIUM CHLORIDE 0.9% FLUSH 10 ML FLUSH IV FLUSH ×2 (08:51→21:00)
[2017-11-08] MEDS: INSULIN NovoLIN REGULAR SUPPLEMENTAL SCALE SQ ×4 (08:51→21:00)
[2017-11-08] MEDS: POTASSIUM PHOSPHATE MONOBASIC 500 MG TAB PO ×2 (13:00→23:39)
[2017-11-08 13:51] LABS: HIV 1 PROVIRAL DNA Not Detected (Not Detected)
[2017-11-08] MEDS ORDERED: CHLORHEXIDINE GLUCONATE 2 % 1 PACK (2 CLOTHS) TOPICAL (19:30)
[2017-11-08] MEDS ORDERED: POVIDONE IODINE 5% (ANTISEPSIS KIT) 4 APPLICATIONS EACH NARE (19:30)
[2017-11-08] MEDS ORDERED: SODIUM CHLORID 0.9% 500 ML IV (19:30)
[2017-11-08] MEDS ORDERED: METOPROLOL TARTRATE 25 MG TAB PO (19:30)
[2017-11-08 19:52] LABS: CERULOPLASMIN 27 mg/dL (18-36)
[2017-11-08] MEDS: LORazepam 1 MG TAB PO ×2 (21:51→23:36)
[2017-11-08] MEDS: diphenhydrAMINE HCL 25 MG CAP PO (21:56)
[2017-11-08 23:54] LABS: MITOCHONDRIAL ABS LESS THAN 20.0 U (<=20.0)
[2017-11-09] MEDS: CHLORHEXIDINE GLUCONATE 2 % 1 PACK (2 CLOTHS) TOP (04:00)
[2017-11-09] MEDS: RESP: ALBUTEROL 2.5 MG/IPRATROPIUM 0.5 MG NEB (SCH) INH ×3 (04:05→21:52)
[2017-11-09 06:11] LABS: HEMATOCRIT 39.9 % (39.0-51.0); HEMOGLOBIN 13.9 GM/DL (13.0-17.0); MEAN CORPUSCULAR HEMOGLOBIN 33.9 PG (27.0-34.0); PLATELET COUNT 161 TH/MM3 (150-450); RED BLOOD COUNT 4.11 MIL/MM3 (4.50-5.90); RED CELL DISTRIBUTION WIDTH 14.8 % (11.6-17.2); WHITE BLOOD COUNT 5.6 TH/MM3 (4.0-11.0)
[2017-11-09 06:13] LABS: HEMO FLAGS AUTO DIFF
[2017-11-09 06:31] LABS: ALBUMIN 2.1 GM/DL (3.4-5.0); ALKALINE PHOSPHATASE 112 U/L (45-117); ALT (GPT) 227 U/L (12-78); ANION GAP 9 MEQ/L (5-15); AST (GOT) 154 U/L (15-37); BICARBONATE 22.9 MEQ/L (21.0-32.0); BLOOD UREA NITROGEN 5 MG/DL (7-18); CALCIUM 7.8 MG/DL (8.5-10.1); CHLORIDE 112 MEQ/L (98-107); CREATININE 0.87 MG/DL (0.60-1.30); GLOMERULAR FILTRATION RATE 90 ML/MIN (>89); GLUCOSE,RANDOM 80 MG/DL (74-106); PHOSPHORUS 2.4 MG/DL (2.5-4.9); POTASSIUM 3.3 MEQ/L (3.5-5.1); SODIUM (NA) 144 MEQ/L (136-145); TOTAL BILIRUBIN ADULT 1.7 MG/DL (0.2-1.0)
[2017-11-09 07:32] LABS: BANDS 3 % (0-6); LYMPHOCYTES 31 % (9-44); METAMYELOCYTES 1 % (0-1); MONOCYTES 10 % (0-8); NEUTROPHIL # MANUAL DIFF 3.2 TH/MM3 (1.8-7.7); PLASMA CELLS 1 % (0-0); PLATELET ESTIMATE SMEAR NORMAL (NORMAL); PLATELET MORPHOLOGY NORMAL (NORMAL); POLYS (SEG NEUTROPHILS) 54 % (16-70); SCAN/DIFF FINAL DIFF MANUAL; WBC DIFF SAMPLE 100
[2017-11-09] MEDS: INSULIN NovoLIN REGULAR SUPPLEMENTAL SCALE SQ ×4 (08:00→21:00)
[2017-11-09] MEDS: METOPROLOL TARTRATE 25 MG TAB PO ×2 (09:34→23:02)
[2017-11-09] MEDS: THIAMINE HCL 100 MG TAB PO (09:34)
[2017-11-09] MEDS: PANTOPRAZOLE SOD 40 MG DELAYED RELEASE TAB PO (09:34)
[2017-11-09] MEDS: FOLIC ACID 1 MG TAB PO (09:34)
[2017-11-09] MEDS: ARTIFICIAL TEARS OPTH SOLN 15 ML BTL EACH EYE ×3 (09:39→18:13)
[2017-11-09] MEDS: SODIUM CHLORIDE 0.9% FLUSH 10 ML FLUSH IV FLUSH ×2 (09:39→23:03)
[2017-11-09] MEDS: DOCUSATE SODIUM 50 MG/SENNA 8.6 MG TAB PO ×2 (09:40→23:01)
[2017-11-09] MEDS: POTASSIUM CHLORIDE INJ 10 MEQ in DEXT 5%-NACL 0.9% 1000 ML INJ 1,000 ML IV (09:40)
[2017-11-09] MEDS: LACTATED RINGER'S 1000 ML IV (11:10)
[2017-11-09] MEDS: MIDAZOLAM HCL 2 MG/2 ML VIAL (11:15)
[2017-11-09] MEDS ORDERED: MIDAZOLAM HCL 2 MG/2 ML VIAL IV PUSH (11:30)
[2017-11-09] MEDS: SUCCINYLCHOLINE CHLORIDE 100 MG/5 ML SYRINGE IV PUSH (12:00)
[2017-11-09] MEDS: PROPOFOL 200 MG/20 ML AMP IV (12:00)
[2017-11-09] MEDS: LIDOCAINE HCL 1% PF 5 ML SYRINGE OTHER (12:00)
[2017-11-09] MEDS ORDERED: DO NOT ADM ANY ANTICOAGULANT DRUGS (12:15)
[2017-11-09 12:44] LABS: HEREDITARY HEMOCHROM SPECIMEN WB Whole Blood
[2017-11-09] MEDS: predniSONE 20 MG TAB PO (13:53)
[2017-11-09] MEDS ORDERED: LORazepam 2 MG/ML VIAL IV PUSH ×4 (14:00→15:00)
[2017-11-09] MEDS ORDERED: LORazepam 1 MG TAB PO (14:00)
[2017-11-09] MEDS ORDERED: LORazepam 0.5 MG TAB PO (14:00)
[2017-11-09] MEDS: HEPARIN SODIUM - SQ 10,000 UNITS/ML VIAL SQ (23:01)
[2017-11-09] MEDS: POTASSIUM PHOSPHATE MONOBASIC 500 MG TAB PO (23:02)
[2017-11-10] MEDS: CHLORHEXIDINE GLUCONATE 2 % 1 PACK (2 CLOTHS) TOP (03:39)
[2017-11-10] MEDS: RESP: ALBUTEROL 2.5 MG/IPRATROPIUM 0.5 MG NEB (SCH) INH ×4 (04:00→19:56)
[2017-11-10] MEDS: INSULIN NovoLIN REGULAR SUPPLEMENTAL SCALE SQ ×4 (07:56→20:30)
[2017-11-10] MEDS: ARTIFICIAL TEARS OPTH SOLN 15 ML BTL EACH EYE ×3 (09:00→16:43)
[2017-11-10] MEDS: PANTOPRAZOLE SOD 40 MG DELAYED RELEASE TAB PO (09:03)
[2017-11-10] MEDS: METOPROLOL TARTRATE 25 MG TAB PO ×2 (09:03→20:29)
[2017-11-10] MEDS: HEPARIN SODIUM - SQ 10,000 UNITS/ML VIAL SQ ×2 (09:03→20:30)
[2017-11-10] MEDS: THIAMINE HCL 100 MG TAB PO (09:04)
[2017-11-10] MEDS: predniSONE 20 MG TAB PO (09:04)
[2017-11-10] MEDS: POTASSIUM PHOSPHATE MONOBASIC 500 MG TAB PO ×2 (09:04→20:30)
[2017-11-10] MEDS: DOCUSATE SODIUM 50 MG/SENNA 8.6 MG TAB PO ×2 (09:04→20:29)
[2017-11-10] MEDS: FOLIC ACID 1 MG TAB PO (09:04)
[2017-11-10] MEDS: SODIUM CHLORIDE 0.9% FLUSH 10 ML FLUSH IV FLUSH ×2 (09:05→20:30)
[2017-11-10] MEDS: POTASSIUM CHLORIDE INJ 10 MEQ in DEXT 5%-NACL 0.9% 1000 ML INJ 1,000 ML IV (10:00)
[2017-11-10 19:36] LABS: AMMONIA 30 MCMOL/L (11-32)
[2017-11-11] MEDS: RESP: ALBUTEROL 2.5 MG/IPRATROPIUM 0.5 MG NEB (SCH) INH ×4 (03:10→21:04)
[2017-11-11] MEDS: CHLORHEXIDINE GLUCONATE 2 % 1 PACK (2 CLOTHS) TOP (03:11)
[2017-11-11] MEDS: INSULIN NovoLIN REGULAR SUPPLEMENTAL SCALE SQ ×4 (07:59→20:38)
[2017-11-11] MEDS: ARTIFICIAL TEARS OPTH SOLN 15 ML BTL EACH EYE ×3 (08:43→17:31)
[2017-11-11] MEDS: predniSONE 20 MG TAB PO (08:47)
[2017-11-11] MEDS: FOLIC ACID 1 MG TAB PO (08:47)
[2017-11-11] MEDS: THIAMINE HCL 100 MG TAB PO (08:47)
[2017-11-11] MEDS: PANTOPRAZOLE SOD 40 MG DELAYED RELEASE TAB PO (08:47)
[2017-11-11] MEDS: METOPROLOL TARTRATE 25 MG TAB PO ×2 (08:47→20:38)
[2017-11-11] MEDS: POTASSIUM PHOSPHATE MONOBASIC 500 MG TAB PO ×2 (08:47→20:38)
[2017-11-11] MEDS: SODIUM CHLORIDE 0.9% FLUSH 10 ML FLUSH IV FLUSH ×2 (08:48→20:39)
[2017-11-11] MEDS: HEPARIN SODIUM - SQ 10,000 UNITS/ML VIAL SQ ×2 (08:48→20:38)
[2017-11-11] MEDS: DOCUSATE SODIUM 50 MG/SENNA 8.6 MG TAB PO ×2 (08:48→20:38)
[2017-11-11] MEDS: LORazepam 2 MG/ML VIAL IV PUSH (10:38)
[2017-11-11] MEDS: GADODIAMIDE PF 287 MG/ML 20 ML VIAL (for RAD MRI) IVCONTRAST (11:15)
[2017-11-11] MEDS: MAGNESIUM CITRATE SOLN 300 ML BTL PO ×2 (16:44→17:30)
[2017-11-12] MEDS ORDERED: CHLORHEXIDINE GLUCONATE 2 % 1 PACK (2 CLOTHS) TOPICAL (02:45)
[2017-11-12] MEDS ORDERED: METOPROLOL TARTRATE 25 MG TAB PO (02:45)
[2017-11-12] MEDS ORDERED: POVIDONE IODINE 5% (ANTISEPSIS KIT) 4 APPLICATIONS EACH NARE (02:45)
[2017-11-12] MEDS ORDERED: INSULIN HUMAN REGULAR 1,000 UNITS/10 ML VIAL SQ (02:45)
[2017-11-12] MEDS ORDERED: LACTATED RINGER'S 1000 ML IV (02:45)
[2017-11-12] MEDS ORDERED: SODIUM CHLORID 0.9% 500 ML IV (02:45)
[2017-11-12] MEDS: RESP: ALBUTEROL 2.5 MG/IPRATROPIUM 0.5 MG NEB (SCH) INH ×2 (03:40→09:39)
[2017-11-12] MEDS: CHLORHEXIDINE GLUCONATE 2 % 1 PACK (2 CLOTHS) TOP (04:10)
[2017-11-12] MEDS: INSULIN NovoLIN REGULAR SUPPLEMENTAL SCALE SQ ×2 (07:59→12:00)
[2017-11-12] MEDS: THIAMINE HCL 100 MG TAB PO (08:00)
[2017-11-12] MEDS: PANTOPRAZOLE SOD 40 MG DELAYED RELEASE TAB PO (08:01)
[2017-11-12] MEDS: FOLIC ACID 1 MG TAB PO (08:01)
[2017-11-12] MEDS: POTASSIUM PHOSPHATE MONOBASIC 500 MG TAB PO (08:01)
[2017-11-12] MEDS: METOPROLOL TARTRATE 25 MG TAB PO (08:01)
[2017-11-12] MEDS: DOCUSATE SODIUM 50 MG/SENNA 8.6 MG TAB PO (08:01)
[2017-11-12] MEDS: predniSONE 20 MG TAB PO (08:01)
[2017-11-12] MEDS: ARTIFICIAL TEARS OPTH SOLN 15 ML BTL EACH EYE ×2 (08:05→13:00)
[2017-11-12] MEDS: SODIUM CHLORIDE 0.9% FLUSH 10 ML FLUSH IV FLUSH (08:05)
[2017-11-12 10:32] LABS: HEP B DNA R1 LESS THAN 10 IU/mL (Not Detected); HEP B DNA R2 LESS THAN 1.00 (Not Detected)
[2017-11-12] MEDS ORDERED: PROPOFOL 200 MG/20 ML AMP IV (12:00)
[2017-11-12] MEDS ORDERED: LIDOCAINE HCL 1% PF 5 ML SYRINGE OTHER (12:00)
[2017-11-12] MEDS ORDERED: MIDAZOLAM HCL 2 MG/2 ML VIAL (12:42)
== END 2017-11-12 16:52 | disposition home or self-care (01) | DRG 896 ==
LOC: N05A 11-05 16:42 → NEPC 14:26 → N05A 14:47 → N03A 20:51
PROVIDERS: Hospitalist
PROC: 0DBK8ZX Excision of Ascending Colon, Via Natural or Artificial Opening Endoscopic, Diagnostic (ICD-10-PCS; principal; 2017-11-09 11:25)
PROC: 0DBL8ZX Excision of Transverse Colon, Via Natural or Artificial Opening Endoscopic, Diagnostic (ICD-10-PCS; 2017-11-09 11:25)
PROC: 0DBM8ZX Excision of Descending Colon, Via Natural or Artificial Opening Endoscopic, Diagnostic (ICD-10-PCS; 2017-11-09 11:25)
PROC: 0W3P8ZZ Control Bleeding in Gastrointestinal Tract, Via Natural or Artificial Opening Endoscopic (ICD-10-PCS; 2017-11-09 11:25)
PROC: 0DB58ZX Excision of Esophagus, Via Natural or Artificial Opening Endoscopic, Diagnostic (ICD-10-PCS; 2017-11-09 11:25)
PROC: 0DB78ZX Excision of Stomach, Pylorus, Via Natural or Artificial Opening Endoscopic, Diagnostic (ICD-10-PCS; 2017-11-09 11:25)
DX: F10.230 Alcohol dependence with withdrawal, uncomplicated (principal); G93.41 Metabolic encephalopathy; J96.00 Acute respiratory failure, unspecified whether with hypoxia or hypercapnia; R57.9 Shock, unspecified; E87.3 Alkalosis; N17.9 Acute kidney failure, unspecified; E87.2 Acidosis; K76.6 Portal hypertension; D61.818 Other pancytopenia; B19.10 Unspecified viral hepatitis B without hepatic coma; E87.1 Hypo-osmolality and hyponatremia; M62.82 Rhabdomyolysis; R13.10 Dysphagia, unspecified; K52.9 Noninfective gastroenteritis and colitis, unspecified; E83.51 Hypocalcemia; E78.5 Hyperlipidemia, unspecified; E87.6 Hypokalemia; F17.200 Nicotine dependence, unspecified, uncomplicated; F31.9 Bipolar disorder, unspecified; F40.240 Claustrophobia; I10 Essential (primary) hypertension; K21.0 Gastro-esophageal reflux disease with esophagitis; K29.70 Gastritis, unspecified, without bleeding; K31.89 Other diseases of stomach and duodenum; N28.1 Cyst of kidney, acquired; R00.0 Tachycardia, unspecified; R63.4 Abnormal weight loss; R74.0 Nonspecific elevation of levels of transaminase and lactic acid dehydrogenase [LDH]; K57.30 Diverticulosis of large intestine without perforation or abscess without bleeding; K63.5 Polyp of colon; K64.4 Residual hemorrhoidal skin tags; K64.8 Other hemorrhoids; K29.80 Duodenitis without bleeding
CPT/HCPCS: 36600; 70450; 71045; 74177; 74183; 76937; 80048; 80053; 80061; 80074; 81001; 81256; 82103; 82140; 82150; 82390; 82533; 82550; 82552; 82570; 82728; 82805; 82948; 83010; 83036; 83520; 83540; 83550; 83605; 83615; 83690; 83735; 84100; 84155; 84300; 84443; 84466; 84484; 85007; 85025; 85027; 85384; 85610; 85730; 86038; 86140; 86255; 86355; 86357; 86359; 86360; 87040; 87086; 87205; 87328; 87329; 87340; 87493; 87506; 87517; 87535; 87641; 87804; 87804-59; 88305; 88305-59; 88312; 92526-GN; 92610-GN; 93005; 94640; 94664; 94667; 94668; 97110-GO; 97110-GP; 97116-GP; 97162-GP; 97166-GO; 97530-GO; 97530-GP; 97535-GO; 99285

== ENCOUNTER → 2017-11-16 | Outpatient (CLI) | DX: N28.89 Other specified disorders of kidney and ureter (principal) ==

== ENCOUNTER 2017-11-22 06:18 | Day surgery (SDC) | payer SELFPAY ==
[2017-11-22] VITALS (9 sets, daily range): BP systolic 96–157; BP diastolic 51–91; PULSE 53–113; RESP 16–20; TEMP 97.7–98.7; O2SAT 94–100
[~2017-11-22] VITALS: Ht 177.8 cm; Wt 100.9 kg
[~2017-11-22 06:18] MED LIST changes: +AMLO5TAB2 PO; +FOLI1TAB6 PO; -LISI-515 PO; +PANT40TA3 PO; +THIA100 PO
[2017-11-22] MEDS ORDERED: SODIUM CHLOR 0.9% 1000 ML IV SCH (07:00)
[2017-11-22] MEDS ORDERED: LIDOCAINE 1%/EPINEPHrine 1:100,000 SOLN 20 ML VIAL ONE (07:11)
[2017-11-22] MEDS ORDERED: MIDAZOLAM HCL 5 MG/5 ML VIAL ONE (08:28)
[2017-11-22] MEDS ORDERED: fentaNYL CITRATE 250 MCG/5 ML AMP ONE (08:28)
[2017-11-22] MEDS ORDERED: THROMBIN (TOPICAL) 5,000 UNIT VIAL ONE (08:29)
--- NOTE | 2017-11-22 09:25 | RADRPT ---
INDICATIONS: Patient with poor access. Needs good IV access for a CT bx. CLINICAL DATA: This is the patient's initial encounter. Patient reports that signs and symptoms have been present for 1 day and indicates a pain score of 0/10. Location: , Laterality: MEDICAL/SURGICAL HISTORY: Hypertension. Renal mass . COMPARISON: No prior [place] exams available for comparison. FLUORO TIME (min): IMAGE SERIES: 1 ACCESS SITE: SEDATION TIME (min): NA CONTRAST (cc): MEDICATION(S): DEVICE(S): Right vein 3/4 dilator . . PROCEDURE : 1. Ultrasound guided venous access. The risks, benefits and alternatives to the procedure were explained and verbal and written consent w as obtained. The site was prepped in sterile fashion. Full sterile technique was used, including ca p, mask, sterile gloves and gown and a large sterile sheet. Hand hygiene and 2% chlorhexidine and/or betadine/alcohol prep was utilized per protocol for cutaneous antisepsis. Sterile gel and sterile p robe cover were utilized for ultrasound guidance. The skin and subcutaneous tissues were infiltrate d with local anesthetic solution. With ultrasound guidance the prescribed vein was punctured for venous access. A 4 [place] dilator was placed and was flushed and locked with heparin. The patient tolerated procedure well and there were n o complications. CONCLUSION: 1. Uncomplicated ultrasound guided venous access. Electronically signed by: Gonsalo Potter MD 11/22/2017 9:24 AM EDT
[2017-11-22] MEDS ORDERED: IOHEXOL 350 MG/ML 10 ML VIAL (for RAD DIAG) IVCONTRAST ONE (09:30)
--- NOTE | 2017-11-22 09:42 | PD.RAD ---
Post CT Procedure Prog Note Pre Procedure Diagnosis: (1) Right renal mass Post Procedure Diagnosis: (1) Right renal mass Procedure Date: November 22, 2017 Supervising Radiologist: Joe Sandra Anesthesia: Local, Conscious Sedation Plan of Activity Patient to Unit: ROPU Patient Condition: Good See PACS Report for procedural detail/treatment Biopsy Imaging Guidance: CT Side: Right Biopsy Procedure: Kidney Specimen: Core Biopsy Joe Sandra MD November 22, 2017 09:42
[2017-11-22] MEDS ORDERED: oxyCODONE/ACETAMINOPHEN 5 MG/325 MG TAB PO PRN (10:00)
--- NOTE | 2017-11-22 10:14 | RADRPT ---
EXAM DATE: 11/22/2017 9:58 AM EDT AGE/SEX: 57 years / Male INDICATIONS: 1.3 Centimeter enhancing mass, lower pole of right kidney. CLINICAL DATA: This is the patient's initial encounter. Patient reports that signs and symptoms have been present for 1 day and indicates a pain score of 0/10. MEDICAL/SURGICAL HISTORY: Hypertension. None. COMPARISON: No prior [place] exams available for comparison. CONTRAST (cc) 50 Omnipaque 350 (iohexol) SEDATION TIME (min): 30 BIOPSY SITE: Right renal MEDICATION(S): 5 mg midazolam (Versed) IV 250 mcg fentanyl (Sublimaze) IV DEVICE(S): 18 gauge Temno core biopsy needle Two . . PROCEDURE: CT guided Right renal mass biopsy Conscious sedation with continuous EKG and oximetry monitoring. Prior to the procedure informed consent was obtained. Any appropriate prior imaging studies were rev iewed. Using automated exposure control and adjustment of the mA and/or kV according to patient size, radiat ion dose was kept as low as reasonably achievable to obtain optimal diagnostic quality images. DICOM format image data is available electronically for review and comparison. The site was prepped in a sterile fashion. Full sterile technique was used, including cap, mask, harleen rile gloves and gown and a large sterile sheet. Hand hygiene and 2% chlorhexidine and/or betadine/al cohol prep was utilized per protocol for cutaneous antisepsis. The skin and subcutaneous tissues wer e infiltrated with local anesthetic solution. With CT guidance the previously identified right renal mass was localized. Biopsy was performed using the prescribed needle as above. Adequate hemostasis was obtained with compression at the puncture s ite. Follow-up CT scan reveals no hemorrhage. The patient tolerated the procedure well and there were no complications. The patient was returned to the Radiology Outpatient Unit in stable condition. CONCLUSION: Uncomplicated CT guided biopsy of a right renal mass.. Electronically signed by: Joe Sandra MD 11/22/2017 10:13 AM EDT
== END 2017-11-22 17:26 | disposition home or self-care (01) ==
LOC: HRAD 06:18 → HRIP 06:22 → HRAD 17:26
PROVIDERS: ATTEND Urology
DX: N28.89 Other specified disorders of kidney and ureter (principal); I10 Essential (primary) hypertension
CPT/HCPCS: 36410; 50200; 76937; 77012; 85730; 88305; 88341; 88342; 99152; 99153; J2250; J3010; Q9967

== ENCOUNTER 2017-12-20 12:47 | Day surgery (SDC) | payer OTHER ==
[2017-12-20 13:44] VITALS: BP 129/88; PULSE 76; RESP 18; TEMP 98.2; O2SAT 99
[2017-12-20] MEDS ORDERED: LISI10TA3 PO (13:44)
--- NOTE | 2017-12-24 07:44 | RADRPT ---
EXAM DATE: 12/21/2017 7:20 PM EDT AGE/SEX: 57 years / Male INDICATIONS: CONSULT FOR RENAL CRYOABLATION HISTORY OF PRESENT ILLNESS: 57-year-old male who presents with incidentally diagnosed biopsy-proven 1.8 cm renal cell carcinoma in the inferior pole of the right kidney. Patient denies any hematuria, f lank pain or other symptoms. Aside from hypertension, he has no other significant medical conditions. TEMPERATURE: 98.2 HEART RATE: 76 BLOOD PRESSURE: 129/88 RESPIRATIONS: 18 OXIMETRY: 99 PNEUMONIA VACCINE: MEDICAL/SURGICAL HISTORY: Hypertension. RENAL MASS . OPEN REPAIR ROTATOR CUFF COMPARISON: [facility] [place], [place] ABDOMEN W & W/O CONTRAST, 11/11/2017. . SOCIAL HISTORY: Alcohol use. SMOKING HISTORY: ALLERGIES: NKA MEDICATIONS: AMLODIPINE 5MG q.d. FOLIC ACID 1 MG q.d. LISINOPRIL 10 MG q.d. PANTOPRAZOLE 40 MG q.d. THIAMINE 100 MG q.d. PHYSICAL EXAM: General: No acute distress ABDOMEN: Soft, nontender nondistended IMAGING STUDIES: MRI examination dated 11/11/2017 demonstrates a 1.8 cm exophytic solid renal mass arising from the pos terior inferior pole the right kidney. No evidence for perirenal extension or renal vein thrombosis. No other evidence for metastatic disease. ASSESSMENT: 57-year-old male with biopsy-proven 1.8 cm renal cell carcinoma in the inferior pole of the right kid ade. Extended discussion regarding surgical options including nephrectomy and partial nephrectomy cherry will cryoablation. This mass is technically very feasible for percutaneous ablation. We did have an ex tensive discussion regarding patient's relatively young age and issues regarding long-term follow-up and uncertainty regarding late recurrence (beyond 10 years). All questions were answered. PLAN: Tentative plan for cryoablation. TIME SPENT: 30 minutes. Electronically signed by: Gonsalo Potter MD 12/24/2017 7:42 AM EDT
== END 2017-12-20 14:29 | disposition home or self-care (01) ==
LOC: HROP 12:47 → HRIP 12:48 → HROP 14:29
PROVIDERS: ATTEND Urology
DX: C64.1 Malignant neoplasm of right kidney, except renal pelvis (principal); I10 Essential (primary) hypertension; Z71.89 Other specified counseling